=== PATIENT | female | born 1980 | race Caucasian/White ===

== ENCOUNTER 2016-12-04 14:34 | Emergency (ER) | payer OTHER ==
[2016-12-04] MEDS ORDERED: DICL100G18 TP (15:55)
[2016-12-04] MEDS ORDERED: HYDR-2758 PO (15:55)
--- NOTE | 2016-12-04 16:00 | PHYS DOC ---
Past History Past Medical History: No Pertinent History Past Surgical History: Appendectomy, Cholecystectomy Additional Smoking Information: 5 A DAY Alcohol Use: None Drug Use: None Adult General Chief Complaint Chief Complaint: ANKLE PROBLEM HPI HPI Patient is a 36 year old F who presents with ankle pain. She twisted her ankle approximately 5 days ago. She feels that her pain has been worsening during this time. She has been walking on her foot however she is unable to walk normally. She feels that her swelling is increased. Review of Systems Review of Systems Constitutional: Denies fever or chills [] Eyes: Denies change in visual acuity, redness, or eye pain [] HENT: Denies nasal congestion or sore throat [] Respiratory: Denies cough or shortness of breath [] Cardiovascular: No additional information not addressed in HPI [] GI: Denies abdominal pain, nausea, vomiting, bloody stools or diarrhea [] : Denies dysuria or hematuria [] Musculoskeletal: Negative except history of present illness Integument: Denies rash or skin lesions [] Neurologic: Denies headache, focal weakness or sensory changes [] Endocrine: Denies polyuria or polydipsia [] Family History Family History Noncontributory Current Medications Current Medications Medications reviewed Allergies Allergies No allergies Physical Exam Physical Exam Constitutional: Well developed, well nourished, no acute distress, non-toxic appearance. [] HENT: Normocephalic, atraumatic, Eyes: EOMI, conjunctiva normal, no discharge. [] Cardiovascular:Heart rate regular rhythm, no murmur [] Lungs & Thorax: Bilateral breath sounds clear to auscultation [] Skin: Warm, dry, no erythema, no rash. [] Extremities: Mild to moderate bruising and swelling over the left lateral ankle , tenderness to palpation anterior, inferior and posterior to the lateral malleolus. Pain with dorsiflexion and inversion Neurologic: Alert and oriented X 3, normal motor function, normal sensory function, no focal deficits noted. [] Psychologic: Affect normal, judgement normal, mood normal. [] Current Patient Data Vital Signs Vital Signs Date Time Temp Pulse Resp B/P (MAP) Pulse Ox O2 Delivery O2 Flow Rate FiO2 12/04/16 14:44 98.6 69 20 97 Room Air Course & Med Decision Making Course & Med Decision Making Pertinent Labs and Imaging studies reviewed. (See chart for details) Ktracs was reviewed. She has 1 prescription for pain medication in the past year which was prescribed on her initial visit approximately 5 days ago. The prescription is for 12 hydrocodone. There are no concerning trends on Ktracs Dragon Disclaimer Dragon Disclaimer This chart was dictated in whole or in part using Voice Recognition software in a busy, high-work load, and often noisy Emergency Department environment. It may contain unintended and wholly unrecognized errors or omissions. Departure Departure: Impression: Primary Impression: Ankle sprain Referrals: PCP,CHELE (PCP) Patient Instructions: Ankle Sprain Additional Instructions: Leilani was seen in the emergency department for an ankle injury. No emergency medical condition was found on history or physical exam. She was given a prescription for Voltaren and pain medication. She was advised to use lidocaine patches for pain. She was advised to follow-up with an orthopedic or sports medicine doctor as soon as possible for further management Scripts Hydrocodone Bit/Acetaminophen (HYDROCODONE-APAP 5-325 ) 1 Each Tablet 1 TAB PO PRN Q6HRS Y for PAIN for 2 Days, #6 TAB 0 Refills Prov: LINDA MATTSON MD 12/04/16 Diclofenac Sodium (VOLTAREN) 100 Gm Gel..gram. 1 GM TP QID, #100 GM 2 Refills Prov: LINDA MATTSON MD 12/04/16 Problem Qualifiers Primary Impression: Ankle sprain Encounter type: subsequent encounter Involved ligament of ankle: unspecified ligament Laterality: right Qualified Codes: S93.401D - Sprain of unspecified ligament of right ankle, subsequent encounter LINDA MATTSON MD Dec 04, 2016 16:00
[2016-12-04 16:04] VITALS: BP 155/87
== END 2016-12-04 16:14 | disposition home or self-care (01) ==
LOC: ER 14:34
DX: S93.402A Sprain of unspecified ligament of left ankle, initial encounter (principal); F17.200 Nicotine dependence, unspecified, uncomplicated; X58.XXXA Exposure to other specified factors, initial encounter; Y93.89 Activity, other specified; Y99.8 Other external cause status; Y92.89 Other specified places as the place of occurrence of the external cause
CPT/HCPCS: 99283

== ENCOUNTER 2017-05-06 19:54 | Emergency (ER) | payer OTHER ==
[~2017-05-06 19:54] MED LIST: DICL100G18 TP; HYDR-2758 PO
[2017-05-06 20:00] VITALS: BP 120/78
[2017-05-06] MEDS: IV NORMAL SALINE 1,000ML 1,000 ML IV SCH ×3 (21:30→23:30)
[2017-05-06] MEDS ORDERED: KETOROLAC 15 MG/ML VIAL. IV ONE (21:45)
[2017-05-06 22:11] LABS: CLARITY,URINE HAZY; COLOR,URINE STRAW
[2017-05-06 22:12] LABS: BACTERIA,URINE FEW /HPF (0-FEW); BILIRUBIN,URINE NEG (NEG); GLUCOSE,URINE NEG (NEG); NITRITE,URINE NEG (NEG); SQUAMOUS EPITHELIAL CELL,UR MANY /LPF; UROBILINOGEN,URINE 0.2 mg/dL (0.2 mg/dL)
[2017-05-06 22:26] LABS: BASO % 0 % (0-3); EOS # 0.2 x10^3/uL (0.0-0.7); EOS % 1 % (0-3); HEMATOCRIT 42.1 % (36.0-47.0); HEMOGLOBIN 14.3 g/dL (12.0-15.5); LYMPH # 2.4 x10^3/uL (1.0-4.8); LYMPH % 14 % (24-48); MEAN CORPUSCULAR HEMOGLOBIN 33 pg (25-35); MEAN CORPUSCULAR HGB CONC 34 g/dL (31-37); MEAN CORPUSCULAR VOLUME 97 fL (79-100); MONO # 1.2 x10^3/uL (0.0-1.1); MONO % 7 % (0-9); NEUT # 13.1 x10^3uL (1.8-7.7); NEUT % 78 % (31-73); PLATELET COUNT 405 x10^3/uL (140-400); RED BLOOD COUNT 4.37 x10^6/uL (3.50-5.40); RED CELL DISTRIBUTION WIDTH 15.7 % (11.5-14.5); WHITE BLOOD COUNT 16.8 x10^3/uL (4.0-11.0)
[2017-05-06 22:39] LABS: ALBUMIN 4.1 g/dL (3.4-5.0); ALBUMIN/GLOBULIN RATIO 1.1 (1.0-1.7); CALCIUM 9.5 mg/dL (8.5-10.1); CREATININE 1.2 mg/dL (0.6-1.0); GFR 51.1; POTASSIUM 4.5 mmol/L (3.5-5.1); TOTAL BILIRUBIN 0.2 mg/dL (0.2-1.0); TOTAL PROTEIN 7.7 g/dL (6.4-8.2)
[2017-05-06 22:55] LABS: % EOS 1 % (0-5); % LYMPHS 11 % (24-48); % MONOS 13 % (0-10); % SEGS 73 % (35-66)
[2017-05-06 22:56] LABS: PLT ESTIMATE INCREASED (ADEQUATE)
[2017-05-06 22:57] LABS: % ATYL 2 % (0-0)
[2017-05-07] MEDS ORDERED: HYDROmorphone PF 1 MG/ML DISP.SYRIN IV ONE
[2017-05-07] MEDS ORDERED: IOHEXOL 300 MG/ML 75 ML VIAL. IV ONE (00:15)
[2017-05-07] MEDS ORDERED: CONTRAST GIVEN MC PRN (00:15)
[2017-05-07 00:25] LABS: U PREG PATIENT NEGATIVE (NEG)
[2017-05-07] MEDS ORDERED: LORazepam 2 MG/ML VIAL IV ONE (00:45)
--- NOTE | 2017-05-07 01:36 | RAD ---
INDICATION: RIGHT FLANK AND RIGHT SIDED ABDOMINAL PAIN COMPARISON: None. TECHNIQUE: Axial CT images obtained through the abdomen and pelvis with contrast. One or more of the following individualized dose reduction techniques were utilized for this examination: 1. Automated exposure control; 2. Adjustment of the mA and/or kV according to patient size; 3. Use of iterative reconstruction technique. FINDINGS: Small hiatal hernia or mild distention distal esophagus. Abdominal aorta not aneurysmal. Postcholecystectomy changes with biliary ductal dilatation. No peripancreatic edema. Spleen unremarkable. No left-sided hydronephrosis. Urinary bladder is largely decompressed with small amount of urine within at time of exam. No right-sided hydronephrosis. Uterus is visualized. 50 x 36 mm cystic lesion right adnexa. Moderate stool in the colon. No dilated loops of bowel to suggest obstruction. Mild degenerative changes spine IMPRESSION: No evidence of bowel obstruction or hydronephrosis. Cystic lesion right adnexa. Could be ovarian in origin but if further information desired ultrasound could BE obtained. There is some prominence of the biliary tree status post cholecystectomy. This is commonly seen postoperatively but would correlate with symptoms in the region to ensure that there is not a pathologic process. Electronically signed by: Jared Bianchi MD (05/07/2017 1:33 AM) [facility]
[2017-05-07] MEDS ORDERED: DOCU-109 PO (02:07)
--- NOTE | 2017-05-07 02:07 | PHYS DOC ---
Past History Past Medical History: No Pertinent History Past Surgical History: Appendectomy, Cholecystectomy Alcohol Use: None Drug Use: None Adult General Chief Complaint Chief Complaint: ABDOMINAL PAIN HPI HPI 37-year-old female with a history of recurrent constipation now complaining of mid abdominal pain. Her pain is crampy and intermittent. She think she is constipated. No chest pain or shortness of breath. No right upper quadrant right lower quadrant pain. Patient denies nausea vomiting or diarrhea. No fevers chills sweats or shaking chills. Pain is not worse with movement Review of Systems Review of Systems Constitutional: Denies fever or chills [] Eyes: Denies change in visual acuity, redness, or eye pain [] HENT: Denies nasal congestion or sore throat [] Respiratory: Denies cough or shortness of breath [] Cardiovascular: No additional information not addressed in HPI [] GI: Denies abdominal pain, nausea, vomiting, bloody stools or diarrhea [] : Denies dysuria or hematuria [] Musculoskeletal: Denies back pain or joint pain [] Integument: Denies rash or skin lesions [] Neurologic: Denies headache, focal weakness or sensory changes [] Endocrine: Denies polyuria or polydipsia [] All other systems were reviewed and found to be within normal limits, except as documented in this note. Current Medications Current Medications Current Medications Medications (Trade) Dose Ordered Sig/Gianluca Start Time Stop Time Status Last Admin Dose Admin Hydromorphone HCl (Dilaudid) 0.5 mg 1X ONCE 05/07/17 00:00 05/07/17 00:04 DC 05/07/17 00:00 0.5 MG Info (Do NOT chart on this entry -- for MONITORING) 1 each PRN DAILY PRN 05/07/17 00:15 05/09/17 00:14 Iohexol (Omnipaque 300 Mg/ml) 75 ml 1X ONCE 05/07/17 00:15 05/07/17 00:16 DC Ketorolac Tromethamine (Toradol) 15 mg 1X ONCE 05/06/17 21:45 05/06/17 21:46 DC 05/06/17 21:45 15 MG Lorazepam (Ativan) 1 mg 1X ONCE 05/07/17 00:45 05/07/17 00:46 DC 05/07/17 00:42 1 MG Sodium Chloride 1,000 ml @ 1,000 mls/hr Q1H 05/06/17 21:30 05/06/17 22:30 1,000 MLS/HR Allergies Allergies Allergies Coded Allergies Type Severity Reaction Last Updated Verified acetaminophen Allergy Unknown 05/07/17 Yes oxycodone Allergy Unknown 05/07/17 Yes Physical Exam Physical Exam Appearing patient no acute distress mucous membranes moist supple neck clear lungs regular rate and rhythm. No focal abdominal tenderness specifically no right upper quadrant tenderness and nontender McBurney's point. Negative Kilgore sign. Normal bowel sounds no mass or megaly no CVA tenderness. Normal extremities and nonfocal neurologic exam Constitutional: Well developed, well nourished, no acute distress, non-toxic appearance. [] HENT: Normocephalic, atraumatic, bilateral external ears normal, oropharynx moist, no oral exudates, nose normal. [] Eyes: PERRLA, EOMI, conjunctiva normal, no discharge. [] Neck: Normal range of motion, no tenderness, supple, no stridor. [] Cardiovascular:Heart rate regular rhythm, no murmur [] Lungs & Thorax: Bilateral breath sounds clear to auscultation [] Abdomen: Bowel sounds normal, soft, no tenderness, no masses, no pulsatile masses. [] Skin: Warm, dry, no erythema, no rash. [] Back: No tenderness, no CVA tenderness. [] Extremities: No tenderness, no cyanosis, no clubbing, ROM intact, no edema. [] Neurologic: Alert and oriented X 3, normal motor function, normal sensory function, no focal deficits noted. [] Psychologic: Affect normal, judgement normal, mood normal. [] Current Patient Data Lab Results Laboratory Tests Test 05/06/17 20:55 05/06/17 22:07 Urine Collection Type Unknown Urine Color Straw Urine Clarity Hazy Urine pH 7.0 Urine Specific [place] 1.010 Urine Protein Neg (NEG-TRACE) Urine Glucose (UA) Neg mg/dL (NEG) Urine Ketones (Stick) Neg mg/dL (NEG) Urine Blood Mod (NEG) Urine Nitrite Neg (NEG) Urine Bilirubin Neg (NEG) Urine Urobilinogen Dipstick 0.2 mg/dL (0.2 mg/dL) Urine Leukocyte Esterase Neg (NEG) Urine RBC 3-5 /HPF (0-2) Urine WBC 5-10 /HPF (0-4) Urine Squamous Epithelial Cells Many /LPF Urine Bacteria Few /HPF (0-FEW) Urine Test Negative (NEG) White Blood Count 16.8 x10^3/uL (4.0-11.0) H Red Blood Count 4.37 x10^6/uL (3.50-5.40) Hemoglobin 14.3 g/dL (12.0-15.5) Hematocrit 42.1 % (36.0-47.0) Mean Corpuscular Volume 97 fL (79-100) Mean Corpuscular Hemoglobin 33 pg (25-35) Mean Corpuscular Hemoglobin Concent 34 g/dL (31-37) Red Cell Distribution Width 15.7 % (11.5-14.5) H Platelet Count 405 x10^3/uL (140-400) H Neutrophils (%) (Auto) 78 % (31-73) H Lymphocytes (%) (Auto) 14 % (24-48) L Monocytes (%) (Auto) 7 % (0-9) Eosinophils (%) (Auto) 1 % (0-3) Basophils (%) (Auto) 0 % (0-3) Neutrophils # (Auto) 13.1 x10^3uL (1.8-7.7) H Lymphocytes # (Auto) 2.4 x10^3/uL (1.0-4.8) Monocytes # (Auto) 1.2 x10^3/uL (0.0-1.1) H Eosinophils # (Auto) 0.2 x10^3/uL (0.0-0.7) Basophils # (Auto) 0.0 x10^3/uL (0.0-0.2) Segmented Neutrophils % 73 % (35-66) H Lymphocytes % 11 % (24-48) L Atypical Lymphocytes % (Manual) 2 % (0-0) H Monocytes % 13 % (0-10) H Eosinophils % 1 % (0-5) Platelet Estimate Increased (ADEQUATE) Sodium Level 134 mmol/L (136-145) L Potassium Level 4.5 mmol/L (3.5-5.1) Chloride Level 99 mmol/L (98-107) Carbon Dioxide Level 28 mmol/L (21-32) Anion Gap 7 (6-14) Blood Urea Nitrogen 12 mg/dL (7-20) Creatinine 1.2 mg/dL (0.6-1.0) H Estimated GFR (Cockcroft-Gault) 51.1 BUN/Creatinine Ratio 10 (6-20) Glucose Level 94 mg/dL (70-99) Calcium Level 9.5 mg/dL (8.5-10.1) Total Bilirubin 0.2 mg/dL (0.2-1.0) Aspartate Amino Transferase (AST) 11 U/L (15-37) L Alanine Aminotransferase (ALT) 26 U/L (14-59) Alkaline Phosphatase 104 U/L (46-116) Total Protein 7.7 g/dL (6.4-8.2) Albumin 4.1 g/dL (3.4-5.0) Albumin/Globulin Ratio 1.1 (1.0-1.7) Lipase 122 U/L (73-393) EKG EKG [] Radiology/Procedures Radiology/Procedures [] Course & Med Decision Making Course & Med Decision Making Pertinent Labs and Imaging studies reviewed. (See chart for details) Well-appearing patient no acute distress. White blood cell count elevated, creatinine 1.2. Patient hydrated extensively. Laboratory workup unremarkable otherwise. CT abdomen and pelvis shows have a hernia and a right adnexal cyst as well as constipation. Patient is a known history constipation which is recurrent and appears to be the etiology for her vague abdominal pain today. She is nontoxic appearing and no evidence of surgical emergency or indication for admission on the CT results. No further workup or treatment indicated at this time patient agrees with outpatient follow-up and strict return precautions given. She is aware to return immediately for new severe worsening symptoms [] Dragon Disclaimer Dragon Disclaimer This electronic medical record was generated, in whole or in part, using a voice recognition dictation system. Departure Departure: Impression: Primary Impression: Abdominal pain Additional Impressions: Constipation Hiatal hernia Mass of uterine adnexa Disposition: 01 HOME, SELF-CARE Condition: IMPROVED Referrals: PCP,UNKNOWN (PCP) Patient Instructions: Abdominal Pain (Nonspecific), Constipation, Adult Additional Instructions: It appears the or abdominal pain is likely secondary to constipation. Use MiraLAX twice a day. Take Colace as prescribed. Drink 15 mL of mineral oil twice a day as needed for constipation. Rest and drink plenty of fluids. Be aware that you have a hiatal hernia which can predispose you to having symptoms of gastroesophageal reflux especially when laying down. As an incidental finding , a pelvic mass was identified that is suggestive of a cyst. Follow-up with your [facility] doctor for further workup and treatment as needed. Take ibuprofen as needed for pain. Follow-up with your doctor today and return immediately for new severe worsening symptoms Scripts Docusate Sodium (COLACE) 100 Mg Capsule 1 CAP PO BID for 15 Days, #30 CAP Prov: IDA FREEMAN MD 05/07/17 Problem Qualifiers IDA FREEMAN MD May 07, 2017 02:07
== END 2017-05-07 02:22 | disposition home or self-care (01) ==
LOC: ER 19:54
DX: K59.00 Constipation, unspecified (principal); Z90.49 Acquired absence of other specified parts of digestive tract; Z88.6 Allergy status to analgesic agent; Z88.5 Allergy status to narcotic agent
CPT/HCPCS: 36415; 74177; 80053; 81001; 81025; 83690; 85007; 85025; 96374; 96375; 99285; J1170; J1885; J2060; J7030

== ENCOUNTER 2017-08-27 13:35 | Emergency (ER) | payer OTHER ==
[~2017-08-27 13:35] MED LIST changes: +DOCU-109 PO
--- NOTE | 2017-08-27 14:12 | PHYS DOC ---
Past History Past Medical History: No Pertinent History Past Surgical History: Appendectomy, Cholecystectomy Alcohol Use: None Drug Use: None Adult General Chief Complaint Chief Complaint: ANXIETY/PANIC ATTACK HPI HPI 37-year-old female presents with anxiety. The patient was recently admitted at so that she can get off of her multiple psychiatric medications. They have discontinued all but Lexapro. The patient is still in taking one Xanax and remained morning. She comes in today, because her car broke down just outside the hospital. She was on her way to her psychiatry appointment. She hasn't ex- boyfriend who has "taken away her daughter". In her current has threatened to leave her because he is concerned she was abusing her medications. All of this is becoming very overwhelming for her so she checked in the emergency room. She denies suicidal or homicidal ideation. She is simply emotionally overwhelmed. Review of Systems Review of Systems Constitutional: Denies fever or chills [] Eyes: Denies change in visual acuity, redness, or eye pain [] HENT: Denies nasal congestion or sore throat [] Respiratory: Denies cough or shortness of breath [] Cardiovascular: No additional information not addressed in HPI [] GI: Denies abdominal pain, nausea, vomiting, bloody stools or diarrhea [] : Denies dysuria or hematuria [] Musculoskeletal: Denies back pain or joint pain [] Integument: Denies rash or skin lesions [] Neurologic: Denies headache, focal weakness or sensory changes [] Endocrine: Denies polyuria or polydipsia [] All other systems were reviewed and found to be within normal limits, except as documented in this note. Allergies Allergies Allergies Coded Allergies Type Severity Reaction Last Updated Verified acetaminophen Allergy Unknown 05/07/17 Yes oxycodone Allergy Unknown 05/07/17 Yes Physical Exam Physical Exam Constitutional: Well developed, well nourished, no acute distress, non-toxic appearance. [] HENT: Normocephalic, atraumatic, bilateral external ears normal, oropharynx moist, no oral exudates, nose normal. [] Eyes: PERRLA, EOMI, conjunctiva normal, no discharge. [] Neck: Normal range of motion, no tenderness, supple, no stridor. [] Cardiovascular:Heart rate regular rhythm, no murmur [] Lungs & Thorax: Bilateral breath sounds clear to auscultation [] Abdomen: Bowel sounds normal, soft, no tenderness, no masses, no pulsatile masses. [] Skin: Warm, dry, no erythema, no rash. [] Back: No tenderness, no CVA tenderness. [] Extremities: No tenderness, no cyanosis, no clubbing, ROM intact, no edema. [] Neurologic: Alert and oriented X 3, normal motor function, normal sensory function, no focal deficits noted. [] Psychologic: Anxious, tearful[] EKG EKG [] Radiology/Procedures Radiology/Procedures [] Course & Med Decision Making Course & Med Decision Making Pertinent Labs and Imaging studies reviewed. (See chart for details) I had a conversation with the patient was able to help her calm down a bit. I explained to her that it is important that she try to make her psychiatric follow-up appointments. I also told her that it is not her best interest for me to miss around with her psychiatric medications when she has an expert that is already trying to help her. She stated that she understands. She did not ask for any medications. I believe she is just overwhelmed and was needing an outlet for her emotions. She denies any suicidal ideation. She feels as though she is stable to leave. She will contact her or friend help her with a ride. [] Dragon Disclaimer Dragon Disclaimer This electronic medical record was generated, in whole or in part, using a voice recognition dictation system. Departure Departure: Referrals: NORBERTO HENRY DO (PCP) YANCI BAHENA DO Aug 27, 2017 14:12
[2017-08-27 14:21] VITALS: BP 136/87
== END 2017-08-27 14:19 | disposition home or self-care (01) ==
LOC: ER 13:35
DX: F41.9 Anxiety disorder, unspecified (principal); Z88.6 Allergy status to analgesic agent; Z88.5 Allergy status to narcotic agent
CPT/HCPCS: 99284

== ENCOUNTER 2017-12-26 17:08 | Emergency (ER) | payer OTHER ==
[~2017-12-26] VITALS: Ht 162.6 cm; Wt 95.3 kg
--- NOTE | 2017-12-26 17:38 | PHYS DOC ---
Past History Past Medical History: Anxiety, Bipolar, Endometriosis, Other Past Surgical History: Appendectomy, Cholecystectomy Alcohol Use: Occasionally Drug Use: None Adult General Chief Complaint Chief Complaint: FLANK PAIN HPI HPI 37-year-old female presents with 2 day history of flank pain and increased urinary frequency. The patient is very concerned about having a kidney infection as she had one as a child that caused her to be in the hospital for 2 weeks. She states that she has had dysuria and urinary frequency last couple of days. She is also had right flank pain that comes and goes. When it comes on strongly it is a sharp pain that shoots outward across her back. Pain feels deep. The patient denies fever or chills. She denies nausea, vomiting, abdominal pain, chest pain, shortness of breath. Review of Systems Review of Systems Constitutional: Denies fever or chills [] Eyes: Denies change in visual acuity, redness, or eye pain [] HENT: Denies nasal congestion or sore throat [] Respiratory: Denies cough or shortness of breath [] Cardiovascular: No additional information not addressed in HPI [] GI: Denies abdominal pain, nausea, vomiting, bloody stools or diarrhea [] : Dysuria and urinary frequency[] Musculoskeletal: Right flank pain[] Integument: Denies rash or skin lesions [] Neurologic: Denies headache, focal weakness or sensory changes [] Endocrine: Denies polyuria or polydipsia [] All other systems were reviewed and found to be within normal limits, except as documented in this note. Allergies Allergies Allergies Coded Allergies Type Severity Reaction Last Updated Verified acetaminophen Allergy Unknown 05/07/17 Yes oxycodone Allergy Unknown 05/07/17 Yes Physical Exam Physical Exam Constitutional: Well developed, well nourished, no acute distress, non-toxic appearance. [] HENT: Normocephalic, atraumatic, bilateral external ears normal, oropharynx moist, no oral exudates, nose normal. [] Eyes: PERRLA, EOMI, conjunctiva normal, no discharge. [] Neck: Normal range of motion, no tenderness, supple, no stridor. [] Cardiovascular:Heart rate regular rhythm, no murmur [] Lungs & Thorax: Bilateral breath sounds clear to auscultation [] Abdomen: Bowel sounds normal, soft, no tenderness, no masses, no pulsatile masses. [] Skin: Warm, dry, no erythema, no rash. [] Back: Moderate right CVA tenderness. [] Extremities: No tenderness, no cyanosis, no clubbing, ROM intact, no edema. [] Neurologic: Alert and oriented X 3, normal motor function, normal sensory function, no focal deficits noted. [] Psychologic: Affect normal, judgement normal, mood normal. [] EKG EKG [] Radiology/Procedures Radiology/Procedures [] Impressions: CT scan of the abdomen and pelvis without contrast 12/26/2017 CLINICAL HISTORY: Severe right flank pain with urinary frequency. TECHNIQUE: Unenhanced, contiguous, 3 mm axial sections were obtained through abdomen and pelvis. One or more of the following individualized dose reduction techniques were utilized for this study: 1. Automated exposure control. 2. Adjustment of the mA and/or kV according to patient size. 3. Use of iterative reconstruction technique. FINDINGS: Comparison study is dated 05/07/2017. Images through the lung bases demonstrate minimal dependent subsegmental atelectasis bilaterally. The liver, spleen, pancreas, adrenal glands and kidneys are within normal limits. No renal or ureteral calculus is seen. There is no evidence of obstruction of either collecting system. The abdominal aorta tapers normally. Surgical clips are seen within the gallbladder fossa consistent with a cholecystectomy. No free fluid or free air is seen within the abdomen. There is no evidence of bowel obstruction. Air and stool is seen throughout the colon. The appendix is not visualized. No inflammatory changes are seen surrounding the cecum. Images through the pelvis demonstrate the urinary bladder to be contracted. A punctate calcification is seen within the left pelvis consistent with a phlebolith. No free fluid is seen. No adnexal mass is noted. Minimal S-shaped curvature of the thoracolumbar spine is noted. IMPRESSION: No acute abnormality is seen. Electronically signed by: Raul Hancock MD (12/26/2017 6:31 PM) [facility] DICTATED AND SIGNED BY: RAUL HANCOCK MD DATE: 12/26/17 182 CC: YANCI BAHENA DO; NORBERTO HENRY DO Course & Med Decision Making Course & Med Decision Making Pertinent Labs and Imaging studies reviewed. (See chart for details) Patient's labs are unremarkable. Her urinalysis is negative for blood or infection. Her CT scan does not show a kidney stone in the ureters or the kidneys. There is a small radiodensity thought to be a phlebolith. I reviewed the patient's controlled substance drug history and she has not had controls prescribed since early 2017 and she has had none filled since July. At that time he was benzos. She has had no pain medications filled since March. I will give her a short course of [place] 5/325 for pain and hydroxyzine for anxiety. [] Dragon Disclaimer Dragon Disclaimer This electronic medical record was generated, in whole or in part, using a voice recognition dictation system. Departure Departure: Referrals: NORBERTO HENRY DO (PCP) YANCI BAHENA DO Dec 26, 2017 17:38
[2017-12-26] MEDS ORDERED: ONDANSETRON PF 4 MG/2 ML VIAL. IV ONE (17:45)
[2017-12-26] MEDS ORDERED: KETOROLAC 30 MG/ML VIAL. IV ONE (17:45)
[2017-12-26] MEDS ORDERED: IV NORMAL SALINE 1,000ML 1,000 ML IV ONE (17:45)
[2017-12-26 18:08] LABS: BASO % 0 % (0-3); EOS # 0.4 x10^3/uL (0.0-0.7); EOS % 4 % (0-3); HEMATOCRIT 38.7 % (36.0-47.0); LYMPH # 2.2 x10^3/uL (1.0-4.8); LYMPH % 23 % (24-48); MEAN CORPUSCULAR HEMOGLOBIN 31 pg (25-35); MEAN CORPUSCULAR HGB CONC 34 g/dL (31-37); MEAN CORPUSCULAR VOLUME 92 fL (79-100); MONO # 0.9 x10^3/uL (0.0-1.1); MONO % 9 % (0-9); NEUT # 6.2 x10^3uL (1.8-7.7); NEUT % 64 % (31-73); PLATELET COUNT 357 x10^3/uL (140-400); RED BLOOD COUNT 4.21 x10^6/uL (3.50-5.40); RED CELL DISTRIBUTION WIDTH 13.9 % (11.5-14.5); WHITE BLOOD COUNT 9.6 x10^3/uL (4.0-11.0)
[2017-12-26 18:16] LABS: BACTERIA,URINE 0 /HPF (0-FEW); BILIRUBIN,URINE NEG (NEG); CLARITY,URINE CLEAR; COLOR,URINE YELLOW; GLUCOSE,URINE NEG (NEG); NITRITE,URINE NEG (NEG); RBC,URINE 0 /HPF (0-2); SQUAMOUS EPITHELIAL CELL,UR OCC /LPF; UROBILINOGEN,URINE 0.2 mg/dL (0.2 mg/dL); WBC,URINE 0 /HPF (0-4)
[2017-12-26 18:19] LABS: ALBUMIN 3.8 g/dL (3.4-5.0); ALBUMIN/GLOBULIN RATIO 1.1 (1.0-1.7); CALCIUM 9.8 mg/dL (8.5-10.1); GFR 63.1; POTASSIUM 3.9 mmol/L (3.5-5.1); TOTAL BILIRUBIN 0.4 mg/dL (0.2-1.0); TOTAL PROTEIN 7.2 g/dL (6.4-8.2)
[2017-12-26] MEDS ORDERED: LORazepam 2 MG/ML VIAL IV ONE (18:30)
[2017-12-26] MEDS ORDERED: HYDROmorphone PF 1 MG/ML DISP.SYRIN IV ONE (18:30)
--- NOTE | 2017-12-26 18:34 | RAD ---
CT scan of the abdomen and pelvis without contrast 12/26/2017 CLINICAL HISTORY: Severe right flank pain with urinary frequency. TECHNIQUE: Unenhanced, contiguous, 3 mm axial sections were obtained through abdomen and pelvis. One or more of the following individualized dose reduction techniques were utilized for this study: 1. Automated exposure control. 2. Adjustment of the mA and/or kV according to patient size. 3. Use of iterative reconstruction technique. FINDINGS: Comparison study is dated 05/07/2017. Images through the lung bases demonstrate minimal dependent subsegmental atelectasis bilaterally. The liver, spleen, pancreas, adrenal glands and kidneys are within normal limits. No renal or ureteral calculus is seen. There is no evidence of obstruction of either collecting system. The abdominal aorta tapers normally. Surgical clips are seen within the gallbladder fossa consistent with a cholecystectomy. No free fluid or free air is seen within the abdomen. There is no evidence of bowel obstruction. Air and stool is seen throughout the colon. The appendix is not visualized. No inflammatory changes are seen surrounding the cecum. Images through the pelvis demonstrate the urinary bladder to be contracted. A punctate calcification is seen within the left pelvis consistent with a phlebolith. No free fluid is seen. No adnexal mass is noted. Minimal S-shaped curvature of the thoracolumbar spine is noted. IMPRESSION: No acute abnormality is seen. Electronically signed by: Raul Valenzuela MD (12/26/2017 6:31 PM) [facility]
[2017-12-26 18:50] VITALS: BP 143/85
[2017-12-26] MEDS ORDERED: HYDR-971 PO (18:56)
[2017-12-26] MEDS ORDERED: HYDR25TA PO (18:56)
== END 2017-12-26 19:13 | disposition home or self-care (01) ==
LOC: ER 17:08
DX: R30.0 Dysuria (principal); R35.0 Frequency of micturition; R10.9 Unspecified abdominal pain; I87.8 Other specified disorders of veins; F41.9 Anxiety disorder, unspecified; F31.9 Bipolar disorder, unspecified; Z90.89 Acquired absence of other organs; Z90.49 Acquired absence of other specified parts of digestive tract; Z88.6 Allergy status to analgesic agent; Z88.5 Allergy status to narcotic agent
CPT/HCPCS: 36415; 74176; 80053; 81001; 81025; 85025; 96374; 96375; 99285; J1170; J1885; J2060; J2405; J7030

== ENCOUNTER 2018-02-10 16:57 | Emergency (ER) | payer OTHER ==
[~2018-02-10] VITALS: Ht 162.6 cm; Wt 95.3 kg
[~2018-02-10 16:57] MED LIST changes: +HYDR-3165 PO; +HYDR25TA PO
[2018-02-10 17:09] VITALS: BP 131/108
[2018-02-10] MEDS ORDERED: Percogesic PO (17:29)
--- NOTE | 2018-02-10 17:29 | PHYS DOC ---
Past History Past Medical History: Anxiety, Bipolar, Endometriosis, Hypertension, Other Past Surgical History: Appendectomy, Cholecystectomy Smoking: Non-smoker Alcohol Use: Occasionally Drug Use: None Adult General Chief Complaint Chief Complaint: Toothache HPI HPI Patient is a 37 year old female who presents with complaining of left lower jaw and tooth pain for 1 month intermittently getting worse for the last 1 week. Patient states she was seen at [facility] and treated with oxycodone but she is allergic to oxycodone and threw away all of the medication and her last dose of pain medication was yesterday . She states she went to [facility] today again but very were rude to her and she decided to leave. She states she is currently taking Augmentin and denies fever and chills, nausea and vomiting, . Patient states she has appointment with her dentist in one week. Review of Systems Review of Systems Constitutional: Denies fever or chills [] Eyes: Denies change in visual acuity, redness, or eye pain [] HENT: Denies nasal congestion or sore throat, reports dental pain Respiratory: Denies cough or shortness of breath [] Cardiovascular: No additional information not addressed in HPI [] GI: Denies abdominal pain, nausea, vomiting, bloody stools or diarrhea [] : Denies dysuria or hematuria [] Musculoskeletal: Denies back pain or joint pain [] Integument: Denies rash or skin lesions [] Neurologic: Denies headache, focal weakness or sensory changes [] Endocrine: Denies polyuria or polydipsia [] All other systems were reviewed and found to be within normal limits, except as documented in this note. Current Medications Current Medications Current Medications Medications (Trade) Dose Ordered Sig/Gianluca Start Time Stop Time Status Last Admin Dose Admin Ketorolac Tromethamine (Toradol Im) 60 mg 1X ONCE 02/10/18 17:15 02/10/18 17:16 UNV Allergies Allergies Allergies Coded Allergies Type Severity Reaction Last Updated Verified acetaminophen Allergy Unknown 05/07/17 Yes alprazolam Allergy Unknown 12/26/17 Yes oxycodone Allergy Unknown 05/07/17 Yes Physical Exam Physical Exam Constitutional: Well developed, well nourished, mild distress, non-toxic appearance. [] HENT: Normocephalic, atraumatic, bilateral external ears normal, #17 with small cavity and mild tenderness without abscess oropharynx moist, no oral exudates, nose normal. [] Eyes: PERRLA, EOMI, conjunctiva normal, no discharge. [] Neck: Normal range of motion, no tenderness, supple, no stridor. [] Cardiovascular:Heart rate regular rhythm, no murmur [] Lungs & Thorax: Bilateral breath sounds clear to auscultation [] Skin: Warm, dry, no erythema, no rash. [] Back: No tenderness, no CVA tenderness. [] Extremities: No tenderness, no cyanosis, no clubbing, ROM intact, no edema. [] Neurologic: Alert and oriented X 3, normal motor function, normal sensory function, no focal deficits noted. [] Psychologic: Affect anxious Current Patient Data Vital Signs Vital Signs Date Time Temp Pulse Resp B/P (MAP) Pulse Ox O2 Delivery O2 Flow Rate FiO2 02/10/18 17:09 98.2 100 20 100 Room Air EKG EKG [] Radiology/Procedures Radiology/Procedures [] Course & Med Decision Making Course & Med Decision Making Evaluation of patient in ER showed 37-year-old female patient presented to ER with complaining of dental pain intermittently for one month that getting worse for one week and did not get better with medication giving at [facility]. We had a call from [facility] that patient was seen at that hospital 3 times or dental pain and asking for more pain medication and refused to leave the emergency room and had to be escorted by [facility]. Patient was very concern about pain medication and several times asking about what kind of pain medication she is going to get for home and states she Tylenol 3 for tramadol does not work for her pain. Patient psychiatric to continue Augmentin and plan to give prescription for Percogesic and instruction to follow up with the dentist. Cicion Disclaimer Dragon Disclaimer This electronic medical record was generated, in whole or in part, using a voice recognition dictation system. Departure Departure: Impression: Primary Impression: Dentalgia Additional Impressions: Dental caries History of bipolar disorder Disposition: HOME, SELF-CARE (at 1726) Condition: STABLE Referrals: EREN LOCKWOOD (PCP) Patient Instructions: Dental Caries, Toothache-Brief Additional Instructions: Follow-up with your dentist in 2 or 3 days Follow-up with your primary care physician in 3-5 days Continue current antibiotic Scripts [Percogesic] No Conflict Check 1 TAB PO QID PRN for PAIN, #10 Prov: ROCKY MARCUS MD 02/10/18 Problem Qualifiers ROCKY MARCUS MD Feb 10, 2018 17:29
[2018-02-10] MEDS ORDERED: KETOROLAC 60 MG/2 ML VIAL. IM ONE (17:30)
== END 2018-02-10 17:35 | disposition home or self-care (01) ==
LOC: ER 16:57
DX: K02.9 Dental caries, unspecified (principal); F31.9 Bipolar disorder, unspecified; F41.9 Anxiety disorder, unspecified; I10 Essential (primary) hypertension; Z88.5 Allergy status to narcotic agent; Z88.6 Allergy status to analgesic agent; Z88.8 Allergy status to other drugs, medicaments and biological substances
CPT/HCPCS: 96372; 99283; J1885

== ENCOUNTER 2018-05-05 12:23 | Emergency (ER) | payer OTHER ==
[~2018-05-05] VITALS: Ht 162.6 cm; Wt 99.8 kg
[~2018-05-05 12:23] MED LIST changes: +HYDR-2155 PO; -HYDR-2758 PO; +Percogesic PO
[2018-05-05 12:49] VITALS: BP 136/104
[2018-05-05] MEDS ORDERED: KETOROLAC 60 MG/2 ML VIAL. IM ONE (13:15)
[2018-05-05] MEDS ORDERED: HYDR-3165 PO (13:28)
[2018-05-05] MEDS ORDERED: NAPR-683 PO (13:28)
[2018-05-05] MEDS ORDERED: PENI500T PO (13:28)
--- NOTE | 2018-05-05 13:29 | PHYS DOC ---
Past History Past Medical History: Anxiety, Bipolar, Endometriosis, Hypertension, Other Past Surgical History: Appendectomy, Cholecystectomy Smoking: Non-smoker Alcohol Use: Occasionally Drug Use: None Adult General Chief Complaint Chief Complaint: DENTAL PROBLEM HPI HPI Patient is a 38 year old female who presents with complaining of dental pain. She states she was in this emergency room 2 months ago because of dental pain and abscess but was not able to follow-up with the dentist because of financial problems and has had mild left lower jaw and tooth pain that getting worse for the last 1 month. Patient states the pain getting constant for the last 24 hours and rated her pain 10 over 10. Patient denies fever and chills, nausea and vomiting, . Review of Systems Review of Systems Constitutional: Denies fever or chills [] Eyes: Denies change in visual acuity, redness, or eye pain [] HENT: Denies nasal congestion or sore throat, reports dental pain Respiratory: Denies cough or shortness of breath [] Cardiovascular: No additional information not addressed in HPI [] GI: Denies abdominal pain, nausea, vomiting, bloody stools or diarrhea [] : Denies dysuria or hematuria [] Musculoskeletal: Denies back pain or joint pain [] Integument: Denies rash or skin lesions [] Neurologic: Denies headache, focal weakness or sensory changes [] Endocrine: Denies polyuria or polydipsia [] All other systems were reviewed and found to be within normal limits, except as documented in this note. Current Medications Current Medications Current Medications Medications (Trade) Dose Ordered Sig/[facility] Start Time Stop Time Status Last Admin Dose Admin Ketorolac Tromethamine (Toradol Im) 60 mg 1X ONCE 05/05/18 13:15 05/05/18 13:16 UNV Allergies Allergies Allergies Coded Allergies Type Severity Reaction Last Updated Verified acetaminophen Allergy Unknown 05/07/17 Yes alprazolam Allergy Unknown 12/26/17 Yes oxycodone Allergy Unknown 05/07/17 Yes Physical Exam Physical Exam Constitutional: Well developed, well nourished, mild acute distress, non-toxic appearance. [] HENT: Normocephalic, atraumatic, bilateral external ears normal, oropharynx moist, tooth #18 with cavity and tenderness, no oral exudates, nose normal. [] Eyes: PERRLA, EOMI, conjunctiva normal, no discharge. [] Neck: Normal range of motion, no tenderness, supple, no stridor. [] Cardiovascular:Heart rate regular rhythm, no murmur [] Lungs & Thorax: Bilateral breath sounds clear to auscultation [] Back: No tenderness, no CVA tenderness. [] Extremities: No tenderness, no cyanosis, no clubbing, ROM intact, no edema. [] Neurologic: Alert and oriented X 3 Psychologic: Affect anxious , judgement normal, mood normal. [] EKG EKG [] Radiology/Procedures Radiology/Procedures [] Course & Med Decision Making Course & Med Decision Making Evaluation of patient in ER showed 28-year-old male patient with complaining of dental pain for several months that getting worse for the last 24 hours. Patient was anxious and rated her pain 10 over 10. Patient function is to follow -up with her dentist. Plan to give prescription for antibiotic and pain medication. Dragon Disclaimer Dragon Disclaimer This electronic medical record was generated, in whole or in part, using a voice recognition dictation system. Departure Departure: Impression: Primary Impression: Dental caries Additional Impression: Dentalgia Disposition: 01 HOME, SELF-CARE Condition: STABLE Referrals: EREN LOCKWOOD (PCP) Patient Instructions: Dental Abscess, Toothache-Brief Additional Instructions: Drink plenty of liquids Follow-up with your dentist in 2 days Return to ER if not getting better Scripts Penicillin V Potassium (PENICILLIN V POTASSIUM) 500 Mg Tablet 1 TAB PO QID for Infection, #40 TAB Prov: ROCKY MARCUS MD 05/05/18 Hydrocodone Bit/Acetaminophen (NORCO 5-325 TABLET) 1 Each Tablet 1 TAB PO PRN Q6HRS PRN for PAIN, #8 TAB 0 Refills Prov: ROCKY MARCUS MD 05/05/18 Naproxen (NAPROSYN) 500 Mg Tablet 500 MG PO BID for pain, #20 TAB Prov: ROCKY MARCUS MD 05/05/18 Problem Qualifiers ROCKY MARCUS MD May 05, 2018 13:29
== END 2018-05-05 13:50 | disposition home or self-care (01) ==
LOC: ER 12:23
DX: K02.9 Dental caries, unspecified (principal); F41.9 Anxiety disorder, unspecified; F31.9 Bipolar disorder, unspecified; I10 Essential (primary) hypertension; Z88.5 Allergy status to narcotic agent; Z88.6 Allergy status to analgesic agent
CPT/HCPCS: 96372; 99283; J1885

== ENCOUNTER 2018-10-21 15:25 | Emergency (ER) | payer OTHER ==
[~2018-10-21] VITALS: Ht 162.6 cm; Wt 88.5 kg
[~2018-10-21 15:25] MED LIST changes: +NAPR-683 PO; +PENI500T PO
[2018-10-21] MEDS ORDERED: IV NORMAL SALINE 1,000ML 1,000 ML IV ONE (15:45)
[2018-10-21] MEDS ORDERED: MORPHINE SULFATE 2 MG/ML DISP.SYRIN. IV ONE (15:45)
[2018-10-21] MEDS ORDERED: ONDANSETRON PF 4 MG/2 ML VIAL. IV ONE ×2 (15:45→17:45)
[2018-10-21 15:52] LABS: BASO % 1 % (0-3); EOS # 0.2 x10^3/uL (0.0-0.7); EOS % 5 % (0-3); HEMATOCRIT 36.6 % (36.0-47.0); HEMOGLOBIN 11.8 g/dL (12.0-15.5); LYMPH # 1.7 x10^3/uL (1.0-4.8); LYMPH % 33 % (24-48); MEAN CORPUSCULAR HEMOGLOBIN 31 pg (25-35); MEAN CORPUSCULAR HGB CONC 32 g/dL (31-37); MEAN CORPUSCULAR VOLUME 96 fL (79-100); MONO # 0.6 x10^3/uL (0.0-1.1); MONO % 12 % (0-9); NEUT # 2.6 x10^3uL (1.8-7.7); NEUT % 50 % (31-73); PLATELET COUNT 385 x10^3/uL (140-400); RED CELL DISTRIBUTION WIDTH 14.6 % (11.5-14.5); WHITE BLOOD COUNT 5.2 x10^3/uL (4.0-11.0)
--- NOTE | 2018-10-21 16:06 | PHYS DOC ---
Past History Past Medical History: Bipolar, Depression, Other Past Surgical History: Other Smoking: Non-smoker Alcohol Use: None Drug Use: None Adult General Chief Complaint Chief Complaint: VAGINAL BLEEDING HPI HPI 38-year-old female presents with vaginal bleeding. The patient is unsure if she is . She has not taken a test. She has been trying to give . Her last menstrual period was just over a month ago. It was internet e[employer] than normal. The patient started bleeding 5 or 6 days ago. This is about when her menses would normally start. This time however she is having significantly more bleeding than normal and there have been several clots up to the size of half dollar. The patient is concerned that she could be having an early miscarriage. She has gone through his many as 3 altered tampons an hour. She has been having dizziness and lightheadedness especially with standing up. She has a history of endometriosis. She denies fever or chills. Review of Systems Review of Systems Constitutional: Denies fever or chills [] Eyes: Denies change in visual acuity, redness, or eye pain [] HENT: Denies nasal congestion or sore throat [] Respiratory: Denies cough or shortness of breath [] Cardiovascular: No additional information not addressed in HPI [] GI: Denies abdominal pain, nausea, vomiting, bloody stools or diarrhea [] : Vaginal bleeding[] Musculoskeletal: Denies back pain or joint pain [] Integument: Denies rash or skin lesions [] Neurologic: Denies headache, focal weakness or sensory changes [] Endocrine: Denies polyuria or polydipsia [] All other systems were reviewed and found to be within normal limits, except as documented in this note. Current Medications Current Medications Current Medications Medications (Trade) Dose Ordered Sig/[facility] Start Time Stop Time Status Last Admin Dose Admin Morphine Sulfate (Morphine 2mg Syringe) 2 mg 1X ONCE 10/21/18 15:45 10/21/18 15:47 DC 10/21/18 15:49 2 MG Ondansetron HCl (Zofran) 4 mg 1X ONCE 10/21/18 15:45 10/21/18 15:47 DC 10/21/18 15:49 4 MG Sodium Chloride 1,000 ml @ 1,000 mls/hr 1X ONCE 10/21/18 15:45 10/21/18 16:44 10/21/18 15:49 1,000 MLS/HR Allergies Allergies Allergies Coded Allergies Type Severity Reaction Last Updated Verified acetaminophen Allergy Unknown 05/07/17 Yes alprazolam Allergy Unknown 12/26/17 Yes oxycodone Allergy Unknown 05/07/17 Yes Physical Exam Physical Exam Constitutional: Well developed, well nourished, no acute distress, non-toxic appearance. [] HENT: Normocephalic, atraumatic, bilateral external ears normal, oropharynx moist, no oral exudates, nose normal. [] Eyes: PERRLA, EOMI, conjunctiva normal, no discharge. [] Neck: Normal range of motion, no tenderness, supple, no stridor. [] Cardiovascular:Heart rate regular rhythm, no murmur [] Lungs & Thorax: Bilateral breath sounds clear to auscultation [] Abdomen: Bowel sounds normal, soft, mild suprapubic tenderness, no masses, no pulsatile masses. [] Skin: Warm, dry, no erythema, no rash. [] Back: No tenderness, no CVA tenderness. [] Extremities: No tenderness, no cyanosis, no clubbing, ROM intact, no edema. [] Neurologic: Alert and oriented X 3, normal motor function, normal sensory function, no focal deficits noted. [] Psychologic: Affect normal, judgement normal, mood anxious. [] Current Patient Data Vital Signs Vital Signs Date Time Temp Pulse Resp B/P (MAP) Pulse Ox O2 Delivery O2 Flow Rate FiO2 10/21/18 15:56 98.3 98 20 100 Room Air EKG EKG [] Radiology/Procedures Radiology/Procedures [] Course & Med Decision Making Course & Med Decision Making Pertinent Labs and Imaging studies reviewed. (See chart for details) Patient's labs are unremarkable. Her ultrasound is negative for significant findings. I believe she is just having an unusually heavy menses this month. Her hemoglobin is slightly lower than her previous visit, but not near transfusion level. She is feeling better after the fluids and pain medicine. She is stable for discharge at this time. [] Dragon Disclaimer Dragon Disclaimer This electronic medical record was generated, in whole or in part, using a voice recognition dictation system. Departure Departure: Impression: Primary Impression: Dysmenorrhea Disposition: 01 HOME, SELF-CARE Condition: STABLE Referrals: EREN LOCKOWOD (PCP) Patient Instructions: Dysmenorrhea, [id number] YANCI BAHENA DO Oct 21, 2018 16:06
[2018-10-21 16:07] LABS: ALBUMIN 3.7 g/dL (3.4-5.0); ALBUMIN/GLOBULIN RATIO 1.2 (1.0-1.7); CALCIUM 9.4 mg/dL (8.5-10.1); CREATININE 0.8 mg/dL (0.6-1.0); GFR 81.2; POTASSIUM 3.7 mmol/L (3.5-5.1); TOTAL BILIRUBIN 0.3 mg/dL (0.2-1.0); TOTAL PROTEIN 6.7 g/dL (6.4-8.2)
[2018-10-21 17:10] LABS: BACTERIA,URINE 0 /HPF (0-FEW); BILIRUBIN,URINE NEG (NEG); CLARITY,URINE HAZY; COLOR,URINE YELLOW; GLUCOSE,URINE NEG (NEG); NITRITE,URINE NEG (NEG); RBC,URINE 0 /HPF (0-2); SQUAMOUS EPITHELIAL CELL,UR OCC /LPF; UROBILINOGEN,URINE 0.2 mg/dL (0.2 mg/dL); WBC,URINE 0 /HPF (0-4)
--- NOTE | 2018-10-21 17:48 | RAD ---
Exam: Ultrasound pelvis Indication: Passing blood clots Technique: Real-time grayscale and color Doppler images of the pelvis were obtained by the department [place] operator. Transabdominal and transvaginal images were obtained Comparisons: CT 10/26/2017 FINDINGS: Uterus measures 8.3 x 4.7 x 4.3 cm. Uterus demonstrates homogenous echotexture. Endometrium measures 0.7 cm in thickness. Right ovary measures 2.9 x 3.2 x 2.7 cm. Color Doppler flow is noted within the right ovary. Dominant follicle is noted within the right ovary measuring 2.4 x 1.9 x 2.5 cm. Left ovary measures 3.3 x 2.5 x 2.8 cm. Color Doppler flow is noted within the left ovary. Small amount of free fluid noted within the cul-de-sac, likely physiologic. IMPRESSION: 1. Normal sonographic appearance of the uterus. No abnormal endometrial thickening. 2. Likely dominant follicle within the right ovary. Otherwise unremarkable appearance of the ovaries. 3. Small amount of free fluid in the pelvis, likely physiologic. Electronically signed by: Luis Fernando Molina MD (10/21/2018 5:45 PM) [facility]
[2018-10-21] MEDS ORDERED: HYDR-3166 PO (18:05)
[2018-10-21 18:17] VITALS: BP 122/78
== END 2018-10-21 18:10 | disposition home or self-care (01) ==
LOC: ER 15:25
DX: N94.6 Dysmenorrhea, unspecified (principal); R42 Dizziness and giddiness; Z88.6 Allergy status to analgesic agent; Z88.5 Allergy status to narcotic agent; Z88.8 Allergy status to other drugs, medicaments and biological substances
CPT/HCPCS: 36415; 76856; 80053; 81001; 84702; 85025; 96361; 96374; 96375; 96376; 99285; J2270; J2405; J3010; J7030

== ENCOUNTER 2019-02-21 18:50 | Emergency (ER) | payer OTHER ==
[~2019-02-21] VITALS: Ht 162.6 cm; Wt 91.2 kg
[~2019-02-21 18:50] MED LIST changes: +HYDR-3166 PO
--- NOTE | 2019-02-21 18:56 | PHYS DOC ---
Past History Past Medical History: Anxiety, Bipolar, Depression, Endometriosis, IBS, Ovarian Cyst, Other Past Surgical History: Appendectomy, Cholecystectomy, Other Past Surgical History Laser Surgery for Endometriosis and Ovarian Cyst. Smoking: Non-smoker Alcohol Use: None Drug Use: None Adult General Chief Complaint Chief Complaint: VAGINAL BLEEDING ".. I got this bleeding... ".. " I afraid I am having a mis carry.. I been trying to get again.. I did have two home preg. tests that appeared to be +... " [facility] HPI Patient is a 38 year old female who presents with above hx and complaints dysfunctional uterine bleeding and fever that she may be having a miscarriage. Patient does have a history of gravid 1 term 1. Vaginal delivery. Patient has long history of endometriosis with laser surgeries and laparotomies. Patient also has history of recurrent ovarian cysts some that had to be removed surgically. Patient normally follows at [facility]. Patient denies any history of STDs. She has had 20 lifetime sexual partners. Is currently taking a multivitamin . Does have a history of bipolar and anxiety issues. Patient does not smoke. No intake of bad food recently. No history of trauma. No history of traumatic sexual intercourse. Patient states this current episode of abdomen pain and cramping and bleeding start with pink discharge as if she had a large menstrual period. Pt. then had spotting pink discharge again. Patient is not currently on any ovarian stimulation meds to induce ovulation to enhance . No history of trauma. No recent travel. No specific ill contacts. No history immunosuppression. Has had previous laparoscopic surgeries, cholecystectomy, appendectomy, laser laparoscopic procedures for endometriosis and ovarian cyst. Review of Systems Review of Systems Constitutional: Denies fever or chills [] Eyes: Denies change in visual acuity, redness, or eye pain [] HENT: Denies nasal congestion or sore throat [] Respiratory: Denies cough or shortness of breath [] Cardiovascular: No additional information not addressed in HPI [] GI: Complaints of severe crampy abdominal pain, nausea. Vaginal bleeding and clots.. Patient denies, vomiting, bloody stools or diarrhea [] : Denies dysuria or hematuria [] Musculoskeletal: Denies back pain or joint pain [] Integument: Denies rash or skin lesions [] Neurologic: Denies headache, focal weakness or sensory changes [] Endocrine: Denies polyuria or polydipsia [] All other systems were reviewed and found to be within normal limits, except as documented in this note. Family History Family History Noncontributory Current Medications Current Medications See nursing for home meds Allergies Allergies Allergies Coded Allergies Type Severity Reaction Last Updated Verified acetaminophen Allergy Unknown 05/07/17 Yes alprazolam Allergy Unknown 12/26/17 Yes oxycodone Allergy Unknown 05/07/17 Yes Physical Exam Physical Exam Constitutional: Moderate acute distress, non-toxic appearance. [] HENT: Normocephalic, atraumatic, bilateral external ears normal, oropharynx moist, no oral exudates, nose normal. [] Eyes: PERRLA, EOMI, conjunctiva normal, no discharge. [] Neck: Normal range of motion, no tenderness, supple, no stridor. [] Cardiovascular:Heart rate regular rhythm, no murmur [] Lungs & Thorax: Bilateral breath sounds clear to auscultation [] Abdomen: Bowel sounds normal, soft, lower pelvic and bilateral adnexal tenderness, no masses, no pulsatile masses. Some spotting from os. Mild cervical motion tenderness. Some rebound to lower pelvic bilaterally. No CVA tenderness. Old surgery scars. Skin: Warm, dry, no erythema, no rash. [] Back: No tenderness, no CVA tenderness. [] Extremities: No tenderness, no cyanosis, no clubbing, ROM intact, no edema. [] No true psoas sign. Neurologic: Alert and oriented X 3, normal motor function, normal sensory function, no focal deficits noted. [] Psychologic: Affect very anxious, judgement normal, mood normal. [] EKG EKG [] Radiology/Procedures Radiology/Procedures [][address] [place] [address] IMAGING REPORT Signed PATIENT: RIVER TOLEDO ACCOUNT: [id number] : 1980 LOCATION: ER AGE: 38 SEX: F EXAM STATUS: REG ER ORD. PHYSICIAN: BRENTON PARKER MD REASON: Omni 300,75ml IV.Omni 240,30ml PO.Lower abd pain.Hx endometriosis PROCEDURE: CT ABD PELV W/ORAL&IV CONTRAST Exam: CT abdomen and pelvis with contrast INDICATION: Lower abdominal pain TECHNIQUE: Sequential axial images through the abdomen and pelvis obtained following the administration of 75 mL of Omni 300 IV contrast. Sagittal and coronal reformatted images were reconstructed from the axial data and reviewed. Comparisons: 12/26/2017 FINDINGS: Heart size is normal. No pericardial effusion. Visualized lung bases are clear. No pleural effusion. Liver, spleen, pancreas and adrenals are unremarkable. Gallbladder surgically absent. Kidneys demonstrate symmetric enhancement. No perinephric inflammation or hydronephrosis. No renal or ureteral calculi are identified. Bladder is decompressed not well evaluated. Uterus is not enlarged. No abnormal adnexal mass. Abdominal aorta has normal course and caliber. Abdominal vasculature is patent. No enlarged intra-abdominal lymph nodes are identified. No suspicious osseous lesions or acute fractures. IMPRESSION: No acute process identified within the abdomen or pelvis. Exposure: One or more of the following in the visualized dose reduction techniques were utilized for this examination: 1. Automated exposure control 2. Adjustment of the MA and/or KV according to patient size 3. Use of iterative of reconstructive technique Electronically signed by: Luis Fernando Tipton MD (02/21/2019 10:47 PM) [facility] [place] [id number] DICTATED AND SIGNED BY: LUIS FERNANDO TIPTON MD DATE: 02/21/19 2246 CC: EREN LOCKWOOD; BRENTON PARKER MD ~ Course & Med Decision Making Course & Med Decision Making Pertinent Labs and Imaging studies reviewed. (See chart for details) Patient follow-up primary care. Patient take meds as previous discharge did. Patient recommended be on a clear fluid diet for the next 2 days. Allow up pending cultures. Return if any concerns. Tylenol or ibuprofen for pain. For marked pain may take Vicoprofen up to 4 times a day. Take milk of magnesia if taking Vicoprofen. Must have re exam if no improvement. Follow-up pending cultures. Impression: 1. Abdomen Pain 2. Not 3. Dysfunctional uterine bleeding 4. History of endometriosis 5. History of ovarian Cysts 6. Blood Type O + [] Dragon Disclaimer Dragon Disclaimer This electronic medical record was generated, in whole or in part, using a voice recognition dictation system. Departure Departure: Disposition: 01 HOME/RESIDENCE PRIOR TO ADM Condition: STABLE Referrals: EREN LOCKWOOD (PCP) Scripts Hydrocodone/Ibuprofen (HYDROCODONE-IBUPROFEN 7.5-200 ) 1 Each Tablet 1 TAB PO PRN Q6HRS PRN for PAIN, #30 TAB 0 Refills Prov: BRENTON PARKER MD 02/21/19 Tommy Disclaimer This chart was dictated in whole or in part using Voice Recognition software in a busy, high-work load, and often noisy Emergency Department environment. It may contain unintended and wholly unrecognized errors or omissions. Dragon Disclaimer This chart was dictated in whole or in part using Voice Recognition software in a busy, high-work load, and often noisy Emergency Department environment. It may contain unintended and wholly unrecognized errors or omissions. BRENTON PARKER MD Feb 21, 2019 18:56
[2019-02-21] MEDS ORDERED: IV RINGERS SOLUTION,LACTATED 1,000 ML IV SCH (19:00)
[2019-02-21 19:25] LABS: BARBITURATES NEG (NEG); BENZODIAZEPINES NEG (NEG); CANNABINOIDS NEG (NEG); COCAINE NEG (NEG); METHADONE NEG (NEG); OPIATES NEG (NEG); PHENCYCLIDINE NEG (NEG)
[2019-02-21 19:26] LABS: AMPHETAMINE/METHAMPHETAMINE NEG (NEG)
[2019-02-21] MEDS ORDERED: oxyCODONE/APAP 5/325 1 TAB TABLET PO ONE (19:30)
[2019-02-21 19:32] LABS: BILIRUBIN,URINE NEG (NEG); CLARITY,URINE CLEAR; COLOR,URINE YELLOW; GLUCOSE,URINE NEG (NEG)
[2019-02-21 19:33] LABS: BACTERIA,URINE 0 /HPF (0-FEW); NITRITE,URINE NEG (NEG); RBC,URINE RARE /HPF (0-2); SQUAMOUS EPITHELIAL CELL,UR OCC /LPF; UROBILINOGEN,URINE 0.2 mg/dL (0.2 mg/dL); WBC,URINE RARE /HPF (0-4)
[2019-02-21 19:57] LABS: BASO % 1 % (0-3); EOS # 0.4 x10^3/uL (0.0-0.7); EOS % 5 % (0-3); HEMATOCRIT 39.2 % (36.0-47.0); HEMOGLOBIN 12.9 g/dL (12.0-15.5); LYMPH # 2.5 x10^3/uL (1.0-4.8); LYMPH % 29 % (24-48); MEAN CORPUSCULAR HEMOGLOBIN 30 pg (25-35); MEAN CORPUSCULAR HGB CONC 33 g/dL (31-37); MEAN CORPUSCULAR VOLUME 92 fL (79-100); MONO # 0.8 x10^3/uL (0.0-1.1); MONO % 9 % (0-9); NEUT # 4.9 x10^3uL (1.8-7.7); NEUT % 57 % (31-73); PLATELET COUNT 442 x10^3/uL (140-400); RED BLOOD COUNT 4.28 x10^6/uL (3.50-5.40); RED CELL DISTRIBUTION WIDTH 14.3 % (11.5-14.5); WHITE BLOOD COUNT 8.6 x10^3/uL (4.0-11.0)
[2019-02-21 20:02] LABS: ALBUMIN 4.2 g/dL (3.4-5.0); CALCIUM 9.4 mg/dL (8.5-10.1); CREATININE 0.8 mg/dL (0.6-1.0); DIRECT BILIRUBIN 0.1 mg/dL (0.0-0.2); GFR 81.2; TOTAL BILIRUBIN 0.3 mg/dL (0.2-1.0); TOTAL PROTEIN 7.8 g/dL (6.4-8.2)
[2019-02-21] MEDS ORDERED: KETOROLAC 30 MG/ML VIAL. IVP ONE (20:45)
[2019-02-21] MEDS ORDERED: IOHEXOL 300 MG/ML 75 ML VIAL. IV ONE (21:00)
[2019-02-21] MEDS ORDERED: IOHEXOL 240 MG/ML 50ML VIAL. PO ONE (21:00)
[2019-02-21] MEDS ORDERED: CONTRAST GIVEN MC PRN (21:00)
[2019-02-21] MEDS ORDERED: MORPHINE SULFATE 10 MG/ML SYRINGE. SQ ONE (21:30)
--- NOTE | 2019-02-21 22:50 | RAD ---
Exam: CT abdomen and pelvis with contrast INDICATION: Lower abdominal pain TECHNIQUE: Sequential axial images through the abdomen and pelvis obtained following the administration of 75 mL of Omni 300 IV contrast. Sagittal and coronal reformatted images were reconstructed from the axial data and reviewed. Comparisons: 12/26/2017 FINDINGS: Heart size is normal. No pericardial effusion. Visualized lung bases are clear. No pleural effusion. Liver, spleen, pancreas and adrenals are unremarkable. Gallbladder surgically absent. Kidneys demonstrate symmetric enhancement. No perinephric inflammation or hydronephrosis. No renal or ureteral calculi are identified. Bladder is decompressed not well evaluated. Uterus is not enlarged. No abnormal adnexal mass. Abdominal aorta has normal course and caliber. Abdominal vasculature is patent. No enlarged intra-abdominal lymph nodes are identified. No suspicious osseous lesions or acute fractures. IMPRESSION: No acute process identified within the abdomen or pelvis. Exposure: One or more of the following in the visualized dose reduction techniques were utilized for this examination: 1. Automated exposure control 2. Adjustment of the MA and/or KV according to patient size 3. Use of iterative of reconstructive technique Electronically signed by: Luis Fernando Molina MD (02/21/2019 10:47 PM) [id number]
[2019-02-21 23:00] VITALS: BP 115/87
[2019-02-21] MEDS ORDERED: HYDR-1179 PO (23:06)
== END 2019-02-21 23:08 | disposition home or self-care (01) ==
LOC: ER 18:50
DX: N93.8 Other specified abnormal uterine and vaginal bleeding (principal); K58.9 Irritable bowel syndrome, unspecified; Z90.89 Acquired absence of other organs; Z90.49 Acquired absence of other specified parts of digestive tract; Z88.6 Allergy status to analgesic agent; Z88.5 Allergy status to narcotic agent; Z88.8 Allergy status to other drugs, medicaments and biological substances
CPT/HCPCS: 36415; 74177; 80048; 80076; 80307; 81001; 81025; 83735; 84443; 84702; 85025; 85610; 85730; 86592; 86703; 86705; 86709; 86803; 86900; 86901; 87340; 96372; 96374; 96375; 99285; J1885; J2060; J2270; J7120; Q0111; Q9966; Q9967

== ENCOUNTER 2019-02-26 18:50 | Emergency (ER) | payer OTHER ==
[~2019-02-26] VITALS: Ht 162.6 cm; Wt 91.2 kg
[~2019-02-26 18:50] MED LIST changes: +HYDR-1179 PO
--- NOTE | 2019-02-26 19:53 | PHYS DOC ---
Past History Past Medical History: Anxiety, Bipolar, Depression, Endometriosis, IBS, Ovarian Cyst, Other Additional Past Medical Histor: DRUG SEEKING BEHAVIOR Past Surgical History: Appendectomy, Cholecystectomy, Other Additional Past Surgical Histo: EXPLORATORY SX FOR ENDOMETROSIS Smoking: Non-smoker Alcohol Use: None Drug Use: None Adult General Chief Complaint Chief Complaint: VAGINAL BLEEDING HPI HPI Patient is a 38 year old female who presents with complaint of pelvic pain and vaginal bleeding. Patient has been evaluated in the emergency department with complaint of similar symptoms. Has been diagnosed recently with dysfunctional uterine bleeding from her previous visit on February 21, 2019. Patient underwent lab work and CT imaging which was found to be stable at that time. The patient was prescribed Vicoprofen 30 tablets from her previous visit. She states that she has been taking these at home which helped controlled her pain but states that she just ran out within the last couple days. Notes that she has an appointment with an PURIFICATION OPERATOR HELPER in 2 days but came to the emergency department as she states her pain has come back after stopping the medication. Denies any fever. Notes that the pain is in the same area as previously evaluated. Denies any new symptoms associated with her pain. Has had history of endometriosis and previous history of chronic pain medication treatment. Notes that her vaginal bleeding has decreased but she is still noting slight bleeding at this time. No shortness of breath, severe dizziness, or lightheadedness. She is requesting a small refill of her pain medication until her follow-up appointment in 2 days wi th PURIFICATION OPERATOR HELPER. Review of Systems Review of Systems Constitutional: Denies fever or chills [] Eyes: Denies change in visual acuity, redness, or eye pain [] HENT: Denies nasal congestion or sore throat [] Respiratory: Denies cough or shortness of breath [] Cardiovascular: Denies chest pain or edema[] GI: Denies abdominal pain, nausea, vomiting, bloody stools or diarrhea [] : Pelvic pain, vaginal bleeding[] Musculoskeletal: Denies back pain or joint pain [] Integument: Denies rash or skin lesions [] Neurologic: Denies headache, focal weakness or sensory changes [] All other systems were reviewed and found to be within normal limits, except as documented in this note. Allergies Allergies Allergies Coded Allergies Type Severity Reaction Last Updated Verified acetaminophen Allergy Unknown 05/07/17 Yes alprazolam Allergy Unknown 12/26/17 Yes oxycodone Allergy Unknown 05/07/17 Yes Physical Exam Physical Exam Constitutional: Alert, afebrile, no acute distress. [] HENT: Normocephalic, atraumatic, bilateral external ears normal, oropharynx moist, no oral exudates, nose normal. [] Eyes: PERRLA, EOMI, conjunctiva normal, no discharge. [] Neck: Normal range of motion, no tenderness, supple, no stridor. [] Cardiovascular:Heart rate regular rhythm, no murmur [] Lungs & Thorax: Bilateral breath sounds clear to auscultation [] Abdomen: Bowel sounds normal, soft, suprapubic tenderness to palpation, no guarding or rebound tenderness, no masses, no pulsatile masses. [] Skin: Warm, dry, no erythema, no rash. [] Back: No tenderness, no CVA tenderness. [] Extremities: No tenderness, no cyanosis, no clubbing, ROM intact, no edema. [] Neurologic: Alert and oriented X 3, normal motor function, normal sensory fun ction, no focal deficits noted. [] Current Patient Data Vital Signs Vital Signs Date Time Temp Pulse Resp B/P (MAP) Pulse Ox O2 Delivery O2 Flow Rate FiO2 02/26/19 19:10 98.4 77 16 98 Room Air Lab Results Laboratory Tests Test 02/26/19 19:10 Urine Collection Type Unknown Urine Color Yellow Urine Clarity Clear Urine pH 7.5 Urine Specific [place] 1.010 Urine Protein Neg Urine Glucose (UA) Neg mg/dL Urine Ketones (Stick) Neg mg/dL Urine Blood Neg Urine Nitrite Neg Urine Bilirubin Neg Urine Urobilinogen Dipstick 0.2 mg/dL Urine Leukocyte Esterase Neg Urine RBC Rare /HPF Urine WBC Occ /HPF Urine Squamous Epithelial Cells Few /LPF Urine Bacteria Few /HPF Serum Test, Qualitative Negative Current Medications Medications (Trade) Dose Ordered Sig/Gianluca Route PRN Reason Start Time Stop Time Status Last Admin Dose Admin Ketorolac Tromethamine (Toradol Im) 60 mg 1X ONCE IM 02/26/19 20:00 02/26/19 20:01 DC 02/26/19 20:06 Morphine Sulfate (Morphine 10mg Syringe) 10 mg 1X ONCE SQ 02/26/19 20:00 02/26/19 20:01 DC 02/26/19 20:07 EKG EKG Not performed[] Radiology/Procedures Radiology/Procedures Not performed[] Course & Med Decision Making Course & Med Decision Making Pertinent Labs and Imaging studies reviewed. (See chart for details) Medical screening examination completed in the emergency department. The patient's current condition appears stable at this time. Urinalysis negative for infection and patient's urine hCG test was negative. The patient currently has an appointment with [facility]IFICATION OPERATOR HELPER in 2 days. Was previously prescribed 30 tablets of Vicoprofen recently from the emergency department. I explained to the patient that narcotic medication could not be refilled from the emergency department and that she would need to follow with her primary doctor or with her PURIFICATION OPERATOR HELPER for reevaluation before further narcotic pain medication could be prescribed for her condition. The patient did receive acute treatment of pain with IM Toradol and subcutaneous morphine in the emergency department. I advised her to keep her appointment with her PURIFICATION OPERATOR HELPER in the next 2 days as scheduled. Recommended return to the emergency department for any worsening symptoms.[] Dragon Disclaimer Dragon Disclaimer This electronic medical record was generated, in whole or in part, using a voice recognition dictation system. Departure Departure: Impression: Primary Impression: Dysfunctional uterine bleeding Additional Impression: Pelvic pain Disposition: HOME, SELF-CARE Condition: STABLE Referrals: BARB HA DO, [facility] (PCP) Patient Instructions: Pelvic Pain, Female, Uterine Bleeding, Dysfunctional, [id number] Additional Instructions: Return to the emergency department for any worsening symptoms. Problem Qualifiers FREDY WILLIAMSON MD Feb 26, 2019 19:53
[2019-02-26] MEDS ORDERED: MORPHINE SULFATE 10 MG/ML SYRINGE. SQ ONE (20:00)
[2019-02-26] MEDS ORDERED: KETOROLAC 60 MG/2 ML VIAL. IM ONE (20:00)
[2019-02-26 20:03] LABS: BACTERIA,URINE FEW /HPF (0-FEW); BILIRUBIN,URINE NEG (NEG); CLARITY,URINE CLEAR; COLOR,URINE YELLOW; GLUCOSE,URINE NEG (NEG); NITRITE,URINE NEG (NEG); RBC,URINE RARE /HPF (0-2); SQUAMOUS EPITHELIAL CELL,UR FEW /LPF; UROBILINOGEN,URINE 0.2 mg/dL (0.2 mg/dL); WBC,URINE OCC /HPF (0-4)
[2019-02-26 20:20] LABS: PREG TEST PT QUAL NEGATIVE (NEG)
[2019-02-26 20:30] VITALS: BP 115/79
== END 2019-02-26 20:50 | disposition home or self-care (01) ==
LOC: ER 18:50
DX: N93.8 Other specified abnormal uterine and vaginal bleeding (principal); R10.2 Pelvic and perineal pain; K58.9 Irritable bowel syndrome, unspecified; Z90.89 Acquired absence of other organs; Z90.49 Acquired absence of other specified parts of digestive tract; Z88.8 Allergy status to other drugs, medicaments and biological substances; Z88.5 Allergy status to narcotic agent
CPT/HCPCS: 81001; 84703; 96372; 99284; J1885; J2270

== ENCOUNTER 2019-04-02 18:07 | Emergency (ER) | payer OTHER ==
[~2019-04-02] VITALS: Ht 162.6 cm; Wt 89.8 kg
[2019-04-02 18:20] VITALS: BP 146/97
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
== END 2019-04-02 18:47 | disposition home or self-care (01) ==
LOC: ER 18:07
DX: S00.33XA Contusion of nose, initial encounter (principal); G89.29 Other chronic pain; Z76.5 Malingerer [conscious simulation]; K58.9 Irritable bowel syndrome, unspecified; F41.9 Anxiety disorder, unspecified; F31.9 Bipolar disorder, unspecified; Z88.5 Allergy status to narcotic agent; Z88.6 Allergy status to analgesic agent; Z88.8 Allergy status to other drugs, medicaments and biological substances; W22.8XXA Striking against or struck by other objects, initial encounter; Y93.89 Activity, other specified; Y92.89 Other specified places as the place of occurrence of the external cause; Y99.8 Other external cause status
CPT/HCPCS: 99281

== ENCOUNTER 2019-05-26 18:13 | Emergency (ER) | payer OTHER ==
[~2019-05-26] VITALS: Ht 162.6 cm; Wt 88.0 kg
[2019-05-26] MEDS ORDERED: METOCLOPRAMIDE HCL 10 MG/2 ML VIAL. IVP ONE (19:45)
[2019-05-26] MEDS ORDERED: IV NORMAL SALINE 1,000ML 1,000 ML IV ONE (19:45)
[2019-05-26] MEDS ORDERED: diphenhydrAMINE 50 MG/ML VIAL IVP ONE (19:45)
[2019-05-26] MEDS ORDERED: KETOROLAC 30 MG/ML VIAL. IVP ONE (20:00)
--- NOTE | 2019-05-26 20:04 | RAD ---
Exam: CT head INDICATION: Severe headache TECHNIQUE: Sequential axial images through the head were obtained without the administration of IV contrast. Comparisons: None FINDINGS: No focal parenchymal lesion or hemorrhage is identified. There is no midline shift or sulcal effacement. No acute vascular territory infarction is identified. Ramírez-white distinction is preserved. The ventricular system is within normal limits without compression hydrocephalus. The basal cisterns are well maintained. The visualized portions of the paranasal sinuses and mastoid air cells are well-pneumatized. No acute fractures. IMPRESSION: No acute intracranial abnormality. Exposure: One or more of the following in the visualized dose reduction techniques were utilized for this examination: 1. Automated exposure control 2. Adjustment of the MA and/or KV according to patient size Use of iterative of reconstructive technique Electronically signed by: Luis Fernando Molina MD (05/26/2019 8:00 PM) [id number]
[2019-05-26 20:16] LABS: BASO % 1 % (0-3); EOS # 0.2 x10^3/uL (0.0-0.7); EOS % 3 % (0-3); HEMATOCRIT 41.6 % (36.0-47.0); HEMOGLOBIN 13.5 g/dL (12.0-15.5); LYMPH # 1.8 x10^3/uL (1.0-4.8); LYMPH % 24 % (24-48); MEAN CORPUSCULAR HEMOGLOBIN 29 pg (25-35); MEAN CORPUSCULAR HGB CONC 33 g/dL (31-37); MEAN CORPUSCULAR VOLUME 89 fL (79-100); MONO # 0.6 x10^3/uL (0.0-1.1); MONO % 9 % (0-9); NEUT # 4.7 x10^3uL (1.8-7.7); NEUT % 64 % (31-73); PLATELET COUNT 415 x10^3/uL (140-400); RED BLOOD COUNT 4.68 x10^6/uL (3.50-5.40); RED CELL DISTRIBUTION WIDTH 14.6 % (11.5-14.5); WHITE BLOOD COUNT 7.3 x10^3/uL (4.0-11.0)
[2019-05-26 20:27] LABS: CALCIUM 9.4 mg/dL (8.5-10.1); GFR 62.4; POTASSIUM 4.1 mmol/L (3.5-5.1)
[2019-05-26 20:29] LABS: BACTERIA,URINE FEW /HPF (0-FEW); BILIRUBIN,URINE NEG (NEG); CLARITY,URINE HAZY; COLOR,URINE YELLOW; GLUCOSE,URINE NEG (NEG); NITRITE,URINE NEG (NEG); RBC,URINE 0 /HPF (0-2); SQUAMOUS EPITHELIAL CELL,UR OCC /LPF; UROBILINOGEN,URINE 0.2 mg/dL (0.2 mg/dL)
[2019-05-26 20:30] LABS: HYALINE CASTS, URINE OCC /HPF; U PREG PATIENT NEGATIVE (NEG)
[2019-05-26 20:32] LABS: ALBUMIN 4.5 g/dL (3.4-5.0); ALBUMIN/GLOBULIN RATIO 1.3 (1.0-1.7); BARBITURATES NEG (NEG); BENZODIAZEPINES NEG (NEG); CANNABINOIDS NEG (NEG); COCAINE NEG (NEG); MAGNESIUM 2.2 mg/dL (1.8-2.4); METHADONE NEG (NEG); OPIATES NEG (NEG); PHENCYCLIDINE NEG (NEG); TOTAL BILIRUBIN 0.5 mg/dL (0.2-1.0); TOTAL PROTEIN 7.9 g/dL (6.4-8.2)
[2019-05-26 20:35] LABS: AMPHETAMINE/METHAMPHETAMINE NEG (NEG)
--- NOTE | 2019-05-26 21:16 | PHYS DOC ---
Past History Past Medical History: Anxiety, Bipolar, Depression, Other Additional Past Medical Histor: BORDERLINE PERSONALITY DISORDER Past Surgical History: Appendectomy, Cholecystectomy, Other Additional Past Surgical Histo: NECK CYST REMOVED, KIDNEY CYST SURGERY, Smoking: Non-smoker Alcohol Use: None Drug Use: None Adult General Chief Complaint Chief Complaint: BACK PAIN OR INJURY HPI HPI Patient is a 39-year-old female who presented to ER today for evaluation of headache, neck pain. Patient has history of chronic neck problem, she also has history of migraine headache. Patient says she has been having headache and neck pain somewhat that she was not able to keep anything down. Patient had not been able to eat anything today. Patient now had tingling and numbness sensation all over body. Patient feels shaky, weak and dehydrated. Patient denies any chest pain, no abdominal pain, no trouble breathing. No cough or fever. She said the pain from the base of her neck radiating to both sides of her shoulders and arms. Review of Systems Review of Systems All other ROS is negative unless otherwise noted in HPI Current Medications Current Medications Current Medications Medications (Trade) Dose Ordered Sig/Gianluca Start Time Stop Time Status Last Admin Dose Admin Diphenhydramine HCl (Benadryl) 25 mg 1X ONCE 05/26/19 19:45 05/26/19 19:46 DC 05/26/19 20:19 25 MG Ketorolac Tromethamine (Toradol 30mg Vial) 30 mg 1X ONCE 05/26/19 20:00 05/26/19 20:01 DC 05/26/19 20:14 30 MG Metoclopramide HCl (Reglan Vial) 10 mg 1X ONCE 05/26/19 19:45 05/26/19 19:46 DC 05/26/19 20:17 10 MG Sodium Chloride 1,000 ml @ 1,000 mls/hr 1X ONCE 05/26/19 19:45 05/26/19 20:44 DC 05/26/19 19:45 1,000 MLS/HR Allergies Allergies Allergies Coded Allergies Type Severity Reaction Last Updated Verified acetaminophen Allergy Unknown 05/07/17 Yes alprazolam Allergy Unknown 12/26/17 Yes oxycodone Allergy Unknown 05/07/17 Yes Physical Exam Physical Exam See above Constitutional: Well developed, well nourished, no acute distress, non-toxic appearance. [] HENT: Normocephalic, atraumatic, bilateral external ears normal, oropharynx moist, no oral exudates, nose normal. [] Eyes: PERRLA, EOMI, conjunctiva normal, no discharge. [] Neck: Normal range of motion, no tenderness, supple, no stridor. [] Cardiovascular:Heart rate regular rhythm, no murmur [] Lungs & Thorax: Bilateral breath sounds clear to auscultation [] Abdomen: Bowel sounds normal, soft, no tenderness, no masses, no pulsatile masses. [] Skin: Warm, dry, no erythema, no rash. [] Back: No tenderness, no CVA tenderness. [] Extremities: No tenderness, no cyanosis, no clubbing, ROM intact, no edema. [] Neurologic: Alert and oriented X 3, normal motor function, normal sensory function, no focal deficits noted. [] Psychologic: Affect normal, judgement normal, mood normal. [] Current Patient Data Vital Signs Vital Signs Date Time Temp Pulse Resp B/P (MAP) Pulse Ox O2 Delivery O2 Flow Rate FiO2 05/26/19 18:23 98.8 67 18 138/89 (105) 97 Room Air Lab Results Laboratory Tests Test 05/26/19 20:07 White Blood Count 7.3 x10^3/uL (4.0-11.0) Red Blood Count 4.68 x10^6/uL (3.50-5.40) Hemoglobin 13.5 g/dL (12.0-15.5) Hematocrit 41.6 % (36.0-47.0) Mean Corpuscular Volume 89 fL (79-100) Mean Corpuscular Hemoglobin 29 pg (25-35) Mean Corpuscular Hemoglobin Concent 33 g/dL (31-37) Red Cell Distribution Width 14.6 % (11.5-14.5) H Platelet Count 415 x10^3/uL (140-400) H Neutrophils (%) (Auto) 64 % (31-73) Lymphocytes (%) (Auto) 24 % (24-48) Monocytes (%) (Auto) 9 % (0-9) Eosinophils (%) (Auto) 3 % (0-3) Basophils (%) (Auto) 1 % (0-3) Neutrophils # (Auto) 4.7 x10^3uL (1.8-7.7) Lymphocytes # (Auto) 1.8 x10^3/uL (1.0-4.8) Monocytes # (Auto) 0.6 x10^3/uL (0.0-1.1) Eosinophils # (Auto) 0.2 x10^3/uL (0.0-0.7) Basophils # (Auto) 0.0 x10^3/uL (0.0-0.2) Urine Collection Type Unknown Urine Color Yellow Urine Clarity [place] Urine pH 5.5 Urine Specific [place] >=1.030 Urine Protein Neg (NEG-TRACE) Urine Glucose (UA) Neg mg/dL (NEG) Urine Ketones (Stick) Trace mg/dL (NEG) Urine Blood Neg (NEG) Urine Nitrite Neg (NEG) Urine Bilirubin Neg (NEG) Urine Urobilinogen Dipstick 0.2 mg/dL (0.2 mg/dL) Urine Leukocyte Esterase Neg (NEG) Urine RBC 0 /HPF (0-2) Urine WBC 1-4 /HPF (0-4) Urine Squamous Epithelial Cells Occ /LPF Urine Bacteria Few /HPF (0-FEW) Urine Hyaline Casts Occ /HPF Urine Mucus Mod /LPF Urine Test Negative (NEG) Sodium Level 139 mmol/L (136-145) Potassium Level 4.1 mmol/L (3.5-5.1) Chloride Level 104 mmol/L (98-107) Carbon Dioxide Level 26 mmol/L (21-32) Anion Gap 9 (6-14) Blood Urea Nitrogen 10 mg/dL (7-20) Creatinine 1.0 mg/dL (0.6-1.0) Estimated GFR (Cockcroft-Gault) 62.4 BUN/Creatinine Ratio 10 (6-20) Glucose Level 95 mg/dL (70-99) Calcium Level 9.4 mg/dL (8.5-10.1) Magnesium Level 2.2 mg/dL (1.8-2.4) Total Bilirubin 0.5 mg/dL (0.2-1.0) Aspartate Amino Transferase (AST) 11 U/L (15-37) L Alanine Aminotransferase (ALT) 17 U/L (14-59) Alkaline Phosphatase 61 U/L (46-116) Total Protein 7.9 g/dL (6.4-8.2) Albumin 4.5 g/dL (3.4-5.0) Albumin/Globulin Ratio 1.3 (1.0-1.7) Lipase 105 U/L (73-393) Urine Opiates Screen Neg (NEG) Urine Methadone Screen Neg (NEG) Urine Barbiturates Neg (NEG) Urine Phencyclidine Screen Neg (NEG) Urine Amphetamine/Methamphetamine Neg (NEG) Urine Benzodiazepines Screen Neg (NEG) Urine Cocaine Screen Neg (NEG) Urine Cannabinoids Screen Neg (NEG) Urine Ethyl Alcohol Neg (NEG) EKG EKG [] Radiology/Procedures Radiology/Procedures [][address] [id number] IMAGING REPORT Signed PATIENT: RIVER TOLEDO ACCOUNT: [id number] : 1980 LOCATION: ER AGE: 39 SEX: F EXAM STATUS: REG ER ORD. PHYSICIAN: LINDA TURPIN DO REASON: Severe headache PROCEDURE: CT HEAD WO CONTRAST Exam: CT head INDICATION: Severe headache TECHNIQUE: Sequential axial images through the head were obtained without the administration of IV contrast. Comparisons: None FINDINGS: No focal parenchymal lesion or hemorrhage is identified. There is no midline shift or sulcal effacement. No acute vascular territory infarction is identified. Ramírez-white distinction is preserved. The ventricular system is within normal limits without compression hydrocephalus. The basal cisterns are well maintained. The visualized portions of the paranasal sinuses and mastoid air cells are well-pneumatized. No acute fractures. IMPRESSION: No acute intracranial abnormality. Exposure: One or more of the following in the visualized dose reduction techniques were utilized for this examination: 1. Automated exposure control 2. Adjustment of the MA and/or KV according to patient size Use of iterative of reconstructive technique Electronically signed by: Luis Fernando Tipton MD (05/26/2019 8:00 PM) [id number] DICTATED AND SIGNED BY: LUIS FERNANDO TIPTON MD DATE: 05/26/191999 CC: LINDA TURPIN DO; BARB HA DO, [facility] ~ Course & Med Decision Making Course & Med Decision Making Pertinent Labs and Imaging studies reviewed. (See chart for details) [] Dragon Disclaimer Dragon Disclaimer This electronic medical record was generated, in whole or in part, using a voice recognition dictation system. Departure Departure: Impression: Primary Impression: Neck pain Additional Impression: Headache Disposition: HOME, SELF-CARE Condition: STABLE Referrals: BARB HA DO, [facility] (PCP) follow up with your doctor this week for reevaluation. Patient Instructions: Cervical Radiculopathy, General Headache Without Cause Additional Instructions: Thank you for visiting our Emergency Department. We appreciate you trusting us with your care. If any additional problems come up don't hesitate to return to visit us. Please follow up with your primary care provider so they can plan additional care if needed and know about the problem that you had. If symptoms worsen come back to the Emergency Department. Any concerning symptoms that start such as chest pain, shortness of air, weakness or numbness on one side of the body, running high fevers or any other concerning symptoms return to the ER. Scripts Ondansetron Hcl (ZOFRAN) 4 Mg Tablet 1 TAB PO Q6HRS for nausea, #12 TAB Prov: LINDA TURPIN DO 05/26/19 Hydrocodone/Ibuprofen (HYDROCODONE-IBUPROFEN 7.5-200 ) 1 Each Tablet 1 TAB PO PRN Q6HRS PRN for PAIN, #12 TAB 0 Refills Prov: LINDA TURPIN DO 05/26/19 Problem Qualifiers LINDA TURPIN DO May 26, 2019 21:16
[2019-05-26] MEDS ORDERED: MORPHINE SULFATE 4 MG/ML DISP.SYRIN. IV ONE (21:45)
[2019-05-26] MEDS ORDERED: MORPHINE SULFATE 4 MG/ML DISP.SYRIN. ONE (21:49)
[2019-05-26] MEDS ORDERED: ONDA4TAB7 PO (21:53)
[2019-05-26] MEDS ORDERED: HYDR-1179 PO (21:53)
[2019-05-26 22:05] VITALS: BP 112/74
== END 2019-05-26 22:10 | disposition home or self-care (01) ==
LOC: ER 18:13
DX: R51 Headache (principal); M54.2 Cervicalgia; R20.2 Paresthesia of skin; Z88.6 Allergy status to analgesic agent; Z88.5 Allergy status to narcotic agent; Z88.8 Allergy status to other drugs, medicaments and biological substances
CPT/HCPCS: 36415; 70450; 80053; 80307; 81001; 81025; 83690; 83735; 85025; 96374; 96375; 99284; J1200; J1885; J2270; J2765; J7030

== ENCOUNTER 2019-05-29 18:07 | Emergency (ER) | payer OTHER ==
[~2019-05-29] VITALS: Ht 162.6 cm; Wt 82.0 kg
[~2019-05-29 18:07] MED LIST changes: +ONDA4TAB7 PO
[2019-05-29 18:10] VITALS: BP 130/89
[2019-05-29] MEDS ORDERED: CODE1CAP8 PO (18:31)
[2019-05-29] MEDS ORDERED: NAPR-682 PO (18:31)
[2019-05-29] MEDS ORDERED: PRED20TA PO (18:31)
--- NOTE | 2019-05-29 18:31 | PHYS DOC ---
Past History Past Medical History: Anxiety, Bipolar, Depression, Other Additional Past Medical Histor: BORDERLINE PERSONALITY DISORDER Past Surgical History: Appendectomy, Cholecystectomy, Other Additional Past Surgical Histo: NECK CYST REMOVED, KIDNEY CYST SURGERY, Smoking: Non-smoker Alcohol Use: None Drug Use: None Adult General Chief Complaint Chief Complaint: MULTIPLE COMPLAINTS HPI HPI Patient is a 39-year-old female with chronic neck pain, chronic headache, presented to ER today for exacerbation of her headache and neck pain. This patient was seen by this physician 3 days ago for the same symptoms. Patient was given prescription for Vicoprofen 12 tablets, she took all the medication, she came back here because she ran out of her medication. Patient is scheduled to see her family doctor on Sunday. Patient says she still has a headache, neck pain. Patient denies any nausea vomiting, no abdominal pain, no fever, no injury. Review of Systems Review of Systems Positive for headache, neck pain No fever, no trauma, no blurred vision All other systems were reviewed and found to be within normal limits, except as documented in this note. Allergies Allergies Allergies Coded Allergies Type Severity Reaction Last Updated Verified acetaminophen Allergy Unknown 05/07/17 Yes alprazolam Allergy Unknown 12/26/17 Yes oxycodone Allergy Unknown 05/07/17 Yes Physical Exam Physical Exam Constitutional: Well developed, well nourished, no acute distress, non-toxic appearance. [] HENT: Normocephalic, atraumatic, bilateral external ears normal, oropharynx moist, no oral exudates, nose normal. [] Eyes: PERRLA, EOMI, conjunctiva normal, no discharge. [] Neck: Normal range of motion, no tenderness, supple, no stridor. [] Cardiovascular:Heart rate regular rhythm, no murmur [] Lungs & Thorax: Bilateral breath sounds clear to auscultation [] Abdomen: Bowel sounds normal, soft, no tenderness, no masses, no pulsatile masses. [] Skin: Warm, dry, no erythema, no rash. [] Back: No tenderness, no CVA tenderness. [] Extremities: No tenderness, no cyanosis, no clubbing, ROM intact, no edema. [] Neurologic: Alert and oriented X 3, normal motor function, normal sensory function, no focal deficits noted. [] Psychologic: Affect normal, judgement normal, mood normal. [] EKG EKG [] Radiology/Procedures Radiology/Procedures [] Course & Med Decision Making Course & Med Decision Making Pertinent Labs and Imaging studies reviewed. (See chart for details) Patient is a 39-year-old female who was evaluated here today due to headache and neck pain. Patient has chronic neck problem, she has been doing the chronic condition for a long time. Patient will need follow-up with pain management for outpatient evaluation and treatment. Dragon Disclaimer Dragon Disclaimer This electronic medical record was generated, in whole or in part, using a voice recognition dictation system. Departure Departure: Impression: Primary Impression: Headache Additional Impression: Cervical radiculopathy Disposition: HOME, SELF-CARE Condition: STABLE Referrals: BARB HA DO, [facility] (PCP) PLEASE FOLLOW UP WITH YOUR DOCTOR ON SUNDAY Patient Instructions: Cervical Radiculopathy, General Headache Without Cause Additional Instructions: Thank you for visiting our Emergency Department. We appreciate you trusting us with your care. If any additional problems come up don't hesitate to return to visit us. Please follow up with your primary care provider so they can plan additional care if needed and know about the problem that you had. If symptoms worsen come back to the Emergency Department. Any concerning symptoms that start such as chest pain, shortness of air, weakness or numbness on one side of the body, running high fevers or any other concerning symptoms return to the ER. Scripts Prednisone (PREDNISONE) 20 Mg Tablet 1 TAB PO DAILY PRN for NECK PAIN, #7 TAB Prov: LINDA TURPIN DO 05/29/19 Naproxen Sodium (ANAPROX DS) 550 Mg Tablet 550 MG PO BID PRN for PAIN, #30 TAB Prov: LINDA TURPIN DO 05/29/19 Codeine/Butalbital/Asa/Caffein (FIORINAL-COD [id number] CAP) 1 Each Capsule 1 EACH PO Q6HRS PRN for HEADACHE, #15 CAP Prov: LINDA TURPIN DO 05/29/19 Problem Qualifiers LINDA TURPIN DO May 29, 2019 18:31
== END 2019-05-29 19:15 | disposition home or self-care (01) ==
LOC: ER 18:07
DX: M54.12 Radiculopathy, cervical region (principal); R51 Headache; G89.29 Other chronic pain; Z88.5 Allergy status to narcotic agent; Z88.8 Allergy status to other drugs, medicaments and biological substances
CPT/HCPCS: 99283

== ENCOUNTER 2019-06-10 16:41 | Emergency (ER) | payer OTHER ==
[~2019-06-10] VITALS: Ht 162.6 cm; Wt 82.0 kg
[~2019-06-10 16:41] MED LIST changes: +CODE1CAP8 PO; +NAPR-682 PO; +PRED20TA PO
--- NOTE | 2019-06-10 16:58 | PHYS DOC ---
Past History Past Medical History: Anxiety, Bipolar, Depression, Hypertension, Other Additional Past Medical Histor: BORDERLINE PERSONALITY DISORDER Past Surgical History: Appendectomy, Cholecystectomy, Other Additional Past Surgical Histo: NECK CYST REMOVED, KIDNEY CYST SURGERY, Smoking: Non-smoker Alcohol Use: None Drug Use: None Adult General Chief Complaint Chief Complaint: HYPERTENSION HPI HPI Patient is a 39-year-old female who presents from [facility] after being instructed to come to the emergency room for blood pressure of 144/115. Patient indicates that she is under a lot of stress right now, indicating that her just left her. She denies any suicidal ideation. Patient states the only reason she came here was because she was told to. Patient denies chest pain or shortness of breath. She does admit to a mild headache. Patient does have history of hypertension and is treated with propranolol.[] Review of Systems Review of Systems Constitutional: Denies fever or chills [] Eyes: Denies change in visual acuity, redness, or eye pain [] Respiratory: Denies cough or shortness of breath [] Cardiovascular: No additional information not addressed in HPI [] Integument: Denies rash or skin lesions [] Neurologic: Complains of headache without focal weakness or sensory changes [] Allergies Allergies Allergies Coded Allergies Type Severity Reaction Last Updated Verified acetaminophen Allergy Unknown 05/07/17 Yes alprazolam Allergy Unknown 12/26/17 Yes oxycodone Allergy Unknown 05/07/17 Yes Physical Exam Physical Exam Constitutional: Well developed, well nourished, no acute distress, non-toxic appearance. [] HENT: Normocephalic, atraumatic, bilateral external ears normal, oropharynx moist, no oral exudates, nose normal. [] Cardiovascular:Heart rate regular rhythm, no murmur [] Lungs & Thorax: Bilateral breath sounds clear to auscultation [] Neurologic: Alert and oriented X 3, no focal deficits noted. [] EKG EKG [] Radiology/Procedures Radiology/Procedures [] Course & Med Decision Making Course & Med Decision Making Pertinent Labs and Imaging studies reviewed. (See chart for details) [] Dragon Disclaimer Dragon Disclaimer This electronic medical record was generated, in whole or in part, using a voice recognition dictation system. Departure Departure: Impression: Primary Impression: Hypertension Disposition: 01 HOME, SELF-CARE Condition: STABLE Referrals: BARB HA DO, [facility] (PCP) Patient Instructions: Hypertension Additional Instructions: Follow-up with your primary care provider in the next few days. Problem Qualifiers Primary Impression: Hypertension Hypertension type: essential hypertension Qualified Codes: I10 - Essential (primary) hypertension ERYN RUSSELL Jr., DO Jun 10, 2019 16:58
[2019-06-10 17:48] VITALS: BP 164/89
== END 2019-06-10 17:25 | disposition home or self-care (01) ==
LOC: ER 16:41
DX: I10 Essential (primary) hypertension (principal); F41.9 Anxiety disorder, unspecified; F31.9 Bipolar disorder, unspecified; Z88.6 Allergy status to analgesic agent; Z88.5 Allergy status to narcotic agent; Z88.8 Allergy status to other drugs, medicaments and biological substances
CPT/HCPCS: 99281

== ENCOUNTER 2019-09-27 18:30 | Emergency (ER) | payer OTHER ==
[~2019-09-27] VITALS: Ht 162.6 cm; Wt 74.5 kg
[2019-09-27 19:06] VITALS: BP 143/99
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
[2019-09-27] MEDS ORDERED: MUPIROCIN 2% TOPICAL OINTMENT 22GM TUBE. TP SCH (19:56)
[2019-09-27 20:52] LABS: BACTERIA,URINE FEW /HPF (0-FEW); BILIRUBIN,URINE NEG (NEG); CLARITY,URINE CLEAR; COLOR,URINE YELLOW; GLUCOSE,URINE NEG (NEG); NITRITE,URINE NEG (NEG); RBC,URINE 0 /HPF (0-2); SQUAMOUS EPITHELIAL CELL,UR FEW /LPF; UROBILINOGEN,URINE 0.2 mg/dL (0.2 mg/dL); WBC,URINE OCC /HPF (0-4)
[2019-09-27 20:54] LABS: U PREG PATIENT NEGATIVE (NEG)
[2019-09-27 20:55] LABS: BARBITURATES NEG (NEG); BENZODIAZEPINES POS (NEG); CANNABINOIDS NEG (NEG); COCAINE NEG (NEG); METHADONE NEG (NEG); OPIATES NEG (NEG); PHENCYCLIDINE NEG (NEG)
[2019-09-27 20:56] LABS: AMPHETAMINE/METHAMPHETAMINE POS (NEG)
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
[2019-09-27] MEDS ORDERED: HYDR-1179 PO (21:43)
[2019-09-27] MEDS ORDERED: HYDROcodon/IBUPROFEN 7.5/200MG 1 TAB TABLET PO ONE (21:45)
== END 2019-09-27 22:06 | disposition home or self-care (01) ==
LOC: EEVIPCON 18:30 → ER 18:30
DX: S41.112A Laceration without foreign body of left upper arm, initial encounter (principal); S41.111A Laceration without foreign body of right upper arm, initial encounter; S63.501A Unspecified sprain of right wrist, initial encounter; S00.83XA Contusion of other part of head, initial encounter; Z88.6 Allergy status to analgesic agent; Z88.5 Allergy status to narcotic agent; Z88.8 Allergy status to other drugs, medicaments and biological substances; Y08.89XA Assault by other specified means, initial encounter; Y93.89 Activity, other specified; Y92.89 Other specified places as the place of occurrence of the external cause; Y99.8 Other external cause status
CPT/HCPCS: 29125; 36415; 70450; 70486; 71046; 72125; 73110; 80307; 81001; 81025; 99285-25

== ENCOUNTER 2019-10-13 18:42 | Emergency (ER) | payer OTHER ==
[~2019-10-13] VITALS: Ht 162.6 cm; Wt 74.5 kg
--- NOTE | 2019-10-13 19:22 | PHYS DOC ---
Past History Past Medical History: Other Additional Past Medical Histor: BORDERLINE PERSONALITY DISORDER Past Surgical History: Other Additional Past Surgical Histo: NECK CYST REMOVED, KIDNEY CYST SURGERY, Smoking: Non-smoker Alcohol Use: None Drug Use: None General Adult EDM: Chief Complaint: KNEE INJURY HPI: HPI: 39-year-old female presents with right knee pain and increased urinary frequen cy. Patient fell on her right knee a year ago and had pain for a while. This resolved. She fell again a couple weeks ago and she has continued to have swelling and pain in this knee. She did not have it evaluated at the time of injury. She is concerned that its not gotten any better. She also complains of increased urinary frequency lately. She feels like she is peeing all the time but is also dehydrated. She denies history of diabetes. She denies fever chills. Review of Systems: Review of Systems: Constitutional: Denies fever or chills Eyes: Denies change in visual acuity HENT: Denies nasal congestion or sore throat Respiratory: Denies cough or shortness of breath Cardiovascular: Denies chest pain or edema GI: Denies abdominal pain, nausea, vomiting, bloody stools or diarrhea : Increased urinary frequency Musculoskeletal: Right knee pain Integument: Denies rash Neurologic: Denies headache, focal weakness or sensory changes Endocrine: Denies polyuria or polydipsia Lymphatic: Denies swollen glands Psychiatric: Denies depression or anxiety Heart Score: Risk Factors: Risk Factors: DM, Current or recent (<one month) smoker, HTN, HLP, family history of CAD, obesity. Risk Scores: Score 0 - 3: 2.5% MACE over next 6 weeks - Discharge Home Score 4 - 6: 20.3% MACE over next 6 weeks - Admit for Clinical Observation Score 7 - 10: 72.7% MACE over next 6 weeks - Early Invasive Strategies Allergies: Allergies: Allergies Coded Allergies Type Severity Reaction Last Updated Verified acetaminophen Allergy Unknown 05/07/17 Yes alprazolam Allergy Unknown 12/26/17 Yes oxycodone Allergy Unknown 05/07/17 Yes Physical Exam: PE: Constitutional: Well developed, well nourished, no acute distress, non-toxic appearance. [] HENT: Normocephalic, atraumatic, bilateral external ears normal, oropharynx moist, no oral exudates, nose normal. [] Eyes: PERRLA, EOMI, conjunctiva normal, no discharge. [] Neck: Normal range of motion, no tenderness, supple, no stridor. [] Cardiovascular:Heart rate regular rhythm, no murmur [] Lungs & Thorax: Bilateral breath sounds clear to auscultation [] Abdomen: Bowel sounds normal, soft, no tenderness, no masses, no pulsatile masses. [] Skin: Warm, dry, no erythema, no rash. [] Back: No tenderness, no CVA tenderness. [] Extremities: Mild swelling of the anterior right knee, no ecchymosis, tenderness in the posterior knee greater than anterior. Negative anterior/posterior drawer. Negative valgus and varus.[] Neurologic: Alert and oriented X 3, normal motor function, normal sensory function, no focal deficits noted. [] Psychologic: Affect normal, judgement normal, mood normal. [] Current Patient Data: Vital Signs: Vital Signs Date Time Temp Pulse Resp B/P (MAP) Pulse Ox O2 Delivery O2 Flow Rate FiO2 10/13/19 18:52 98.7 73 18 122/94 (103) 100 Room Air EKG: EKG: [] Radiology/Procedures: Radiology/Procedures: [] Impressions: EXAM: AP, oblique, lateral and tangential patellar views of the right knee DATE: 10/13/2019 7:18 PM INDICATION: Reason: fall, pain, swelling, X 2+ WEEKS / Spl. Instructions: / History: COMPARISON: No Prior FINDINGS: No evidence of acute fracture or dislocation. Joint spaces are preserved without significant degenerative/proliferative change. Small right knee joint effusion. IMPRESSION: No evidence of acute fracture or dislocation. Electronically signed by: Amandeep Santiago MD (10/13/2019 8:22 PM) [facility] DICTATED AND SIGNED BY: AMANDEEP SANTIAGO MD DATE: 10/13/192021 CC: YANCI BAHENA DO; RAYMON BAUTISTA ~ Course & Med Decision Making: Course & Med Decision Making Pertinent Labs and Imaging studies reviewed. (See chart for details) The patient's x-ray is negative for fracture. The patient has had multiple controlled substance prescriptions in the last month. I gave her 4 morphine in the emergency room and a [place] 7.5 before she was discharged. I will not discharge her with additional medication prescription. She needs to see a specialist and/or pain management. She is stable for discharge at this time. [] Tommy Disclaimer: Tommy Disclaimer: This electronic medical record was generated, in whole or in part, using a voice recognition dictation system. Departure Departure: Impression: Primary Impression: Right knee pain Qualified Codes: M25.561 - Pain in right knee Disposition: HOME/RESIDENCE PRIOR TO ADM Condition: STABLE Referrals: RAYMON BAUTISTA (PCP) Patient Instructions: Knee Pain, [id number] Additional Instructions: Please follow-up with [facility] orthopedic group for your knee pain. Their phone number is [phone]. Justification of Admission: Justification of Admission: Justification of Admission Dx: N/A YANCI BAHENA DO Oct 13, 2019 19:22
[2019-10-13] MEDS ORDERED: MORPHINE SULFATE 2 MG/ML DISP.SYRIN. IV ONE (19:30)
[2019-10-13] MEDS ORDERED: ONDANSETRON PF 4 MG/2 ML VIAL. IVP ONE (19:30)
[2019-10-13] MEDS ORDERED: IV NORMAL SALINE 1,000ML 1,000 ML IV ONE (19:30)
[2019-10-13 20:00] LABS: AMPHETAMINE/METHAMPHETAMINE NEG (NEG); BARBITURATES NEG (NEG); BENZODIAZEPINES NEG (NEG); CANNABINOIDS NEG (NEG); COCAINE NEG (NEG); METHADONE NEG (NEG); OPIATES NEG (NEG); PHENCYCLIDINE NEG (NEG)
[2019-10-13 20:02] LABS: BACTERIA,URINE 0 /HPF (0-FEW); BILIRUBIN,URINE NEG (NEG); CLARITY,URINE CLEAR; COLOR,URINE STRAW; GLUCOSE,URINE NEG (NEG); NITRITE,URINE NEG (NEG); RBC,URINE 0 /HPF (0-2); SQUAMOUS EPITHELIAL CELL,UR OCC /LPF; UROBILINOGEN,URINE 0.2 mg/dL (0.2 mg/dL); WBC,URINE 0 /HPF (0-4)
[2019-10-13 20:17] LABS: BASO % 0 % (0-3); EOS # 0.1 x10^3/uL (0.0-0.7); EOS % 1 % (0-3); HEMATOCRIT 35.3 % (36.0-47.0); HEMOGLOBIN 11.6 g/dL (12.0-15.5); LYMPH # 2.1 x10^3/uL (1.0-4.8); LYMPH % 28 % (24-48); MEAN CORPUSCULAR HEMOGLOBIN 31 pg (25-35); MEAN CORPUSCULAR HGB CONC 33 g/dL (31-37); MEAN CORPUSCULAR VOLUME 93 fL (79-100); MONO # 0.8 x10^3/uL (0.0-1.1); MONO % 11 % (0-9); NEUT # 4.6 x10^3uL (1.8-7.7); NEUT % 60 % (31-73); PLATELET COUNT 281 x10^3/uL (140-400); RED BLOOD COUNT 3.79 x10^6/uL (3.50-5.40); RED CELL DISTRIBUTION WIDTH 14.9 % (11.5-14.5); WHITE BLOOD COUNT 7.6 x10^3/uL (4.0-11.0)
[2019-10-13 20:20] LABS: CALCIUM 8.7 mg/dL (8.5-10.1); CREATININE 0.9 mg/dL (0.6-1.0); GFR 70.5
--- NOTE | 2019-10-13 20:25 | RAD ---
EXAM: AP, oblique, lateral and tangential patellar views of the right knee DATE: 10/13/2019 7:18 PM INDICATION: Reason: fall, pain, swelling, X 2+ WEEKS / Spl. Instructions: / History: COMPARISON: No Prior FINDINGS: No evidence of acute fracture or dislocation. Joint spaces are preserved without significant degenerative/proliferative change. Small right knee joint effusion. IMPRESSION: No evidence of acute fracture or dislocation. Electronically signed by: Amandeep Santiago MD (10/13/2019 8:22 PM) TOPHER
[2019-10-13 20:26] LABS: ALBUMIN 3.6 g/dL (3.4-5.0); ALBUMIN/GLOBULIN RATIO 1.4 (1.0-1.7); TOTAL BILIRUBIN 0.3 mg/dL (0.2-1.0); TOTAL PROTEIN 6.2 g/dL (6.4-8.2)
[2019-10-13] MEDS ORDERED: HYDROcodone/APAP 7.5/325MG 1 TAB TABLET PO ONE (20:45)
[2019-10-13 20:52] VITALS: BP 134/77
== END 2019-10-13 21:00 | disposition home or self-care (01) ==
LOC: ER 18:42
DX: M25.561 Pain in right knee (principal); R60.0 Localized edema; F60.3 Borderline personality disorder; Z98.890 Other specified postprocedural states; Z88.5 Allergy status to narcotic agent; Z88.8 Allergy status to other drugs, medicaments and biological substances; Z88.6 Allergy status to analgesic agent
CPT/HCPCS: 36415; 73564; 80053; 80307; 81001; 85025; 96361; 96374; 96375; 99285; J2270; J2405; J7030; 81025

== ENCOUNTER 2019-11-03 15:19 | Emergency (ER) | payer OTHER ==
[~2019-11-03] VITALS: Ht 162.6 cm; Wt 74.5 kg
[2019-11-03 15:24] VITALS: BP 134/77
--- NOTE | 2019-11-03 15:52 | PHYS DOC ---
Past History Past Medical History: Endometriosis, Other Additional Past Medical Histor: BORDERLINE PERSONALITY DISORDER, chronic back pain Past Surgical History: Other Additional Past Surgical Histo: NECK CYST REMOVED, KIDNEY CYST SURGERY, Smoking: Non-smoker Alcohol Use: None Drug Use: None General Adult EDM: Chief Complaint: BACK PAIN OR INJURY HPI: HPI: 39-year-old female presents to the ED complaining of serious pain in the upper cervical spine and lower lumbar spine. The pain began yesterday after [place] the whole [place] the [place] ". Patient states that the pain is so severe that she cannot control herself from shaking. Also she says that she is in such severe pain that she is confused. When asked to elaborate what she meant by confused she was unable to do so, she only said it was hard to think straight. She says that she frequently sees a pain medical doctor who has given her pain medications. She stated that she was under pain medication contract with that doctor, but then retracted the statement and said that she does not know if she did sign a contract. The patient states that she has not received any medications in the last month from any doctors at all. The patient says that no medications that she has currently are helping with the pain. States that she is currently taking Toradol for the pain. By accessing [facility] we were able to show her that she has had medications for pain from doctors within the last month. She then stated that she had forgotten about medications and became flustered. Patient states that she just wants "something to make it to her next visit with her pain doctor." Review of Systems: Review of Systems: Constitutional: Denies fever or chills Eyes: Denies change in visual acuity HENT: Denies nasal congestion or sore throat Respiratory: Denies cough or shortness of breath Cardiovascular: Denies chest pain or edema GI: Denies abdominal pain, nausea, vomiting, bloody stools or diarrhea : Denies dysuria Musculoskeletal: Denies back pain or joint pain Integument: Denies rash Neurologic: Denies headache, focal weakness or sensory changes Endocrine: Denies polyuria or polydipsia Lymphatic: Denies swollen glands Psychiatric: Denies depression or anxiety Allergies: Allergies: Allergies Coded Allergies Type Severity Reaction Last Updated Verified acetaminophen Allergy Unknown 05/07/17 Yes alprazolam Allergy Unknown 12/26/17 Yes oxycodone Allergy Unknown 05/07/17 Yes Physical Exam: PE: Constitutional: Well developed, well nourished, no acute distress, non-toxic appearance Eyes: PERRL, EOMI, conjunctiva normal, no discharge Neck: Normal range of motion, no tenderness, supple Lungs & Thorax: In no respiratory distress chest rise and fall bilaterally equal ly Abdomen: Soft, no tenderness Skin: Warm, dry, no erythema, no rash Back: Cervical spine tenderness and lumbar tenderness Extremities: No tenderness, ROM intact, no edema Neurologic: Alert and oriented X 3, normal motor function, normal sensory function, no focal deficits noted Psychologic: Affect normal, judgment normal EKG: EKG: [] Radiology/Procedures: Radiology/Procedures: [] Course & Med Decision Making: Course & Med Decision Making Patient presented to the ED with complaints of upper cervical spine pain and lower lumbar pain after spending the entire day yesterday at the [employer] park "[employer] ". Patient said that she just needs medications for pain to make it to her next appoint with her pain management doctor, because she ran out of all the medications that that doctor prescribed her. Patient states that she has not received any medications in the last month which had a cot directed what we had seen on [facility]. She was prescribed over 90 tablets of multiple medications in the past 2 weeks. As a result of patient not being forthcoming in regards to medications recently prescribed to her which shows potential drug- seeking behavior. As result I decided not to prescribe narcotics to this patient, but I have advised her to reach out to her pain management doctor to see them as soon as possible. Tommy Disclaimer: Tommy Disclaimer: This electronic medical record was generated, in whole or in part, using a voice recognition dictation system. 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 Unfortunately we were unable to give further narcotic pain medication to you today. In the future, please also be truthful regarding any controlled substances that you have been given. Justification of Admission: Justification of Admission: Justification of Admission Dx: N/A ONOFRE,IDA R DO Nov 03, 2019 15:52
[2019-11-03] MEDS ORDERED: KETOROLAC 30 MG/ML VIAL. IM ONE (16:00)
== END 2019-11-03 16:37 | disposition home or self-care (01) ==
LOC: ER 15:19
DX: G89.29 Other chronic pain (principal); M54.6 Pain in thoracic spine; M54.5 Low back pain; R41.0 Disorientation, unspecified; F60.3 Borderline personality disorder; Z88.6 Allergy status to analgesic agent; Z88.5 Allergy status to narcotic agent; Z88.8 Allergy status to other drugs, medicaments and biological substances
CPT/HCPCS: 99281

== ENCOUNTER 2019-11-14 21:17 | Emergency (ER) | payer OTHER ==
[~2019-11-14] VITALS: Ht 162.6 cm; Wt 74.5 kg
[2019-11-14] MEDS ORDERED: IV RINGERS SOLUTION,LACTATED 1,000 ML IV SCH (21:28)
[2019-11-14] MEDS ORDERED: MORPHINE SULFATE 10 MG/ML SYRINGE. SQ ONE (22:30)
[2019-11-14 22:31] LABS: AMPHETAMINE/METHAMPHETAMINE NEG (NEG); BARBITURATES NEG (NEG); BENZODIAZEPINES NEG (NEG); CANNABINOIDS NEG (NEG); COCAINE NEG (NEG); METHADONE NEG (NEG); OPIATES NEG (NEG); PHENCYCLIDINE NEG (NEG)
[2019-11-14 22:33] LABS: BASO % 0 % (0-3); EOS # 0.1 x10^3/uL (0.0-0.7); EOS % 1 % (0-3); HEMATOCRIT 38.2 % (36.0-47.0); HEMOGLOBIN 12.5 g/dL (12.0-15.5); LYMPH # 2.1 x10^3/uL (1.0-4.8); LYMPH % 24 % (24-48); MEAN CORPUSCULAR HEMOGLOBIN 31 pg (25-35); MEAN CORPUSCULAR HGB CONC 33 g/dL (31-37); MEAN CORPUSCULAR VOLUME 94 fL (79-100); MONO # 1.2 x10^3/uL (0.0-1.1); MONO % 13 % (0-9); NEUT # 5.5 x10^3uL (1.8-7.7); NEUT % 61 % (31-73); PLATELET COUNT 393 x10^3/uL (140-400); RED BLOOD COUNT 4.05 x10^6/uL (3.50-5.40); RED CELL DISTRIBUTION WIDTH 15.7 % (11.5-14.5); WHITE BLOOD COUNT 8.9 x10^3/uL (4.0-11.0)
[2019-11-14 22:42] LABS: CALCIUM 9.2 mg/dL (8.5-10.1); CREATININE 1.1 mg/dL (0.6-1.0); GFR 55.9
[2019-11-14 22:47] LABS: ALBUMIN 3.7 g/dL (3.4-5.0); DIRECT BILIRUBIN 0.1 mg/dL (0.0-0.2); TOTAL BILIRUBIN 0.2 mg/dL (0.2-1.0); TOTAL PROTEIN 6.8 g/dL (6.4-8.2)
[2019-11-14 23:27] LABS: BILIRUBIN,URINE NEG (NEG); CLARITY,URINE CLEAR; COLOR,URINE STRAW; GLUCOSE,URINE NEG (NEG)
[2019-11-14 23:28] LABS: BACTERIA,URINE FEW /HPF (0-FEW); NITRITE,URINE NEG (NEG); RBC,URINE 0 /HPF (0-2); SQUAMOUS EPITHELIAL CELL,UR FEW /LPF; UROBILINOGEN,URINE 0.2 mg/dL (0.2 mg/dL); WBC,URINE 0 /HPF (0-4)
--- NOTE | 2019-11-15 00:28 | RAD ---
INDICATION: Reason: pain - est.8 weeks, ovarian cyst COMPARISON: None. TECHNIQUE: Grayscale and color ultrasound images uterus and adnexa. Transabdominal and transvaginal images obtained. Transvaginal images were needed to better visualize structures that were limited on transabdominal imaging. FINDINGS: Uterus: 91 x 62 x 52 mm. Intrauterine gestational sac is identified with a yolk sac seen. No definite pole is seen at this time. 16 x 13 mm dominant follicle or small cyst of right ovary. Hypoechoic lesion of the left ovary measuring approximately 12 mm with some internal complexity. Some possible causes would include a small hemorrhagic cyst or follicle. Right Ovary: 33 x 23 x 19 mm. Left Ovary: 39 x 24 x 17 mm. Vascular flow identified to bilateral ovaries. IMPRESSION: * Intrauterine gestational sac is identified without a pole seen at this time. This correlates with approximately 6 weeks and 5 days gestation. Follow-up could be obtained to ensure appropriate development of a pole to ensure that there is not early failure. This could also be from early gestation prior to development of visualized pole. Electronically signed by: Jared Bianchi MD (11/15/2019 12:25 AM) [id number]
--- NOTE | 2019-11-15 01:03 | PHYS DOC ---
Past History Past Medical History: Constipation, Endometriosis, Ovarian Cyst, STD, Other Additional Past Medical Histor: BORDERLINE PERSONALITY DISORDER, chronic back pain Past Medical History Hx. of possible narcotic seeking behaviors, Past Surgical History: Appendectomy, Cholecystectomy, Other Additional Past Surgical Histo: NECK CYST REMOVED, KIDNEY CYST SURGERY, Smoking: Non-smoker Alcohol Use: None Drug Use: None General Adult EDM: Chief Complaint: ABDOMINAL PAIN IN HPI: HPI: ".. I ve been having a lot of pain with this .. I was at [facility]... and then at [facility] on [facility]. .... because of my pain issues.. with this ....My doctor says .. I usually need more pain meds than most people..." "I get lots of pain in the my abdomen before this .. I have chronic endometriosis and ovarian cysts..." Patient is a 39 year old female who presents with above hx and complaints of pelvic pain with . Patient estimates she is less than6-8 weeks . Has had work-up at [facility] and [facility] on [facility]. Patient states ultrasounds at [facility] showed an intrauterine but they did not see a heart rate. She has a history of 2 term 1. Did have eclampsia with 1 st requiring early delivery. Patient has history of ovarian cyst and endometriosis with episodes of abdomen pain related to these diagnoses. Has had one STD chlamydia which was treated when she was 20 years old. Patient denies any current fears or risk of STD. Patient has had 8 lifetime sex partners. Currently has only 1 sex partner for the last several years. Patient plans on following at for this . Patient denies any history of trauma. Patient denies any immunosuppression. Patient denies any fever or chills. Patient denies any history of bad food intake. Patient denies any travel or specific ill contacts. Review of Systems: Review of Systems: Constitutional: Denies fever or chills Eyes: Denies change in visual acuity HENT: Denies nasal congestion or sore throat Respiratory: Denies cough or shortness of breath Cardiovascular: Denies chest pain or edema GI: Complaints of frequent abdominal pain, Hx nausea and abdomen pain with this , Denies, vomiting, bloody stools or diarrhea : Denies dysuria Musculoskeletal: Complaints of chronic back pain Integument: Denies rash Neurologic: Denies headache, focal weakness or sensory changes Endocrine: Denies polyuria or polydipsia Lymphatic: Denies swollen glands Psychiatric: Denies depression or anxiety Heart Score: Risk Factors: Risk Factors: DM, Current or recent (<one month) smoker, HTN, HLP, family history of CAD, obesity. Risk Scores: Score 0 - 3: 2.5% MACE over next 6 weeks - Discharge Home Score 4 - 6: 20.3% MACE over next 6 weeks - Admit for Clinical Observation Score 7 - 10: 72.7% MACE over next 6 weeks - Early Invasive Strategies Family History: Family History: Noncontributory to presentation Current Medications: Current Meds: See nursing for home meds Current Medications Medications (Trade) Dose Ordered Sig/Gianluca Start Time Stop Time Status Last Admin Dose Admin Lactated Ringer's 1,000 ml @ 1,000 mls/hr Q1H 11/14/19 21:28 11/14/19 22:27 DC 11/14/19 22:05 1,000 MLS/HR Morphine Sulfate (Morphine 10mg Syringe) 10 mg 1X ONCE 11/14/19 22:30 11/14/19 22:33 DC 11/14/19 22:59 10 MG Allergies: Allergies: Allergies Coded Allergies Type Severity Reaction Last Updated Verified alprazolam Allergy Unknown 12/26/17 Yes oxycodone Allergy Unknown 05/07/17 Yes Physical Exam: PE: Constitutional: Well developed, well nourished, moderate acute distress, non- toxic appearance. [] HENT: Normocephalic, atraumatic, bilateral external ears normal, oropharynx moist, no oral exudates, nose normal. [] Eyes: PERRLA, EOMI, conjunctiva normal, no discharge. [] Neck: Normal range of motion, no tenderness, supple, no stridor. [] Cardiovascular:Heart rate regular rhythm, no murmur [] Lungs & Thorax: Bilateral breath sounds equal at apex on auscultation [] Abdomen: Bowel sounds decreased, soft, lower pelvic tenderness, no masses, no pulsatile masses. [] Pelvic exam-no bleeding noted. Some left adnexal tenderness. Rectal exam hard stool in vault. Scant discharge. Distended. Some rebound to Lt. lower abdomen. Skin: Warm, dry, no erythema, no rash. [] Back: No tenderness, no CVA tenderness. [] Extremities: No tenderness, no cyanosis, no clubbing, ROM intact, no edema. [] No psoas sign bilaterally. No cording. Neurologic: Alert and oriented X 3, normal motor function, normal sensory function, no focal deficits noted. [] DTRs +2 patellar and brachial Psychologic: Affect anxious, judgement normal, mood normal. [] Current Patient Data: Labs: Laboratory Tests Test 11/14/19 21:40 11/14/19 21:53 11/14/19 22:10 Urine Collection Type Unknown Urine Color Straw Urine Clarity Clear Urine pH 6.5 Urine Specific [place] <=1.005 Urine Protein Neg (NEG-TRACE) Urine Glucose (UA) Neg mg/dL (NEG) Urine Ketones (Stick) Neg mg/dL (NEG) Urine Blood Neg (NEG) Urine Nitrite Neg (NEG) Urine Bilirubin Neg (NEG) Urine Urobilinogen Dipstick 0.2 mg/dL (0.2 mg/dL) Urine Leukocyte Esterase Neg (NEG) Urine RBC 0 /HPF (0-2) Urine WBC 0 /HPF (0-4) Urine Squamous Epithelial Cells Few /LPF Urine Bacteria Few /HPF (0-FEW) Urine Opiates Screen Neg (NEG) Urine Methadone Screen Neg (NEG) Urine Barbiturates Neg (NEG) Urine Phencyclidine Screen Neg (NEG) Urine Amphetamine/Methamphetamine Neg (NEG) Urine Benzodiazepines Screen Neg (NEG) Urine Cocaine Screen Neg (NEG) Urine Cannabinoids Screen Neg (NEG) Urine Ethyl Alcohol Neg (NEG) POC Urine HCG, Qualitative hcg positive (Negative) White Blood Count 8.9 x10^3/uL (4.0-11.0) Red Blood Count 4.05 x10^6/uL (3.50-5.40) Hemoglobin 12.5 g/dL (12.0-15.5) Hematocrit 38.2 % (36.0-47.0) Mean Corpuscular Volume 94 fL (79-100) Mean Corpuscular Hemoglobin 31 pg (25-35) Mean Corpuscular Hemoglobin Concent 33 g/dL (31-37) Red Cell Distribution Width 15.7 % (11.5-14.5) H Platelet Count 393 x10^3/uL (140-400) Neutrophils (%) (Auto) 61 % (31-73) Lymphocytes (%) (Auto) 24 % (24-48) Monocytes (%) (Auto) 13 % (0-9) H Eosinophils (%) (Auto) 1 % (0-3) Basophils (%) (Auto) 0 % (0-3) Neutrophils # (Auto) 5.5 x10^3uL (1.8-7.7) Lymphocytes # (Auto) 2.1 x10^3/uL (1.0-4.8) Monocytes # (Auto) 1.2 x10^3/uL (0.0-1.1) H Eosinophils # (Auto) 0.1 x10^3/uL (0.0-0.7) Basophils # (Auto) 0.0 x10^3/uL (0.0-0.2) Maternal Serum HCG Beta Subunit 31322 mIU/mL (0-6) H Sodium Level 140 mmol/L (136-145) Potassium Level 4.0 mmol/L (3.5-5.1) Chloride Level 106 mmol/L (98-107) Carbon Dioxide Level 28 mmol/L (21-32) Anion Gap 6 (6-14) Blood Urea Nitrogen 7 mg/dL (7-20) Creatinine 1.1 mg/dL (0.6-1.0) H Estimated GFR (Cockcroft-Gault) 55.9 Glucose Level 64 mg/dL (70-99) L Calcium Level 9.2 mg/dL (8.5-10.1) Total Bilirubin 0.2 mg/dL (0.2-1.0) Direct Bilirubin 0.1 mg/dL (0.0-0.2) Aspartate Amino Transferase (AST) 10 U/L (15-37) L Alanine Aminotransferase (ALT) 70 U/L (14-59) H Alkaline Phosphatase 130 U/L (46-116) H Total Protein 6.8 g/dL (6.4-8.2) Albumin 3.7 g/dL (3.4-5.0) Amylase Level 36 U/L (25-115) Lipase 212 U/L (73-393) Microbiology 11/14/19 Wet Prep - Final, Complete Vital Signs: Vital Signs Date Time Temp Pulse Resp B/P (MAP) Pulse Ox O2 Delivery O2 Flow Rate FiO2 11/14/19 23:55 70 18 129/94 (106) 98 Room Air 11/14/19 21:44 98.2 EKG: EKG: [] Radiology/Procedures: Radiology/Procedures: [][address] [address] IMAGING REPORT Signed PATIENT: RIVER TOLEDO ACCOUNT: [id number] : 1980 LOCATION: ER AGE: 39 SEX: F EXAM STATUS: REG ER ORD. PHYSICIAN: BRENTON PARKER MD REASON: pain - est.8 weeks, ovarian cyst, last US no heart rate dect- 7wk PROCEDURE: OB <14 WKS INDICATION: Reason: pain - est.8 weeks, ovarian cyst COMPARISON: None. TECHNIQUE: Grayscale and color ultrasound images uterus and adnexa. Transabdominal and transvaginal images obtained. Transvaginal images were needed to better visualize structures that were limited on transabdominal imaging. FINDINGS: Uterus: 91 x 62 x 52 mm. Intrauterine gestational sac is identified with a yolk sac seen. No definite pole is seen at this time. 16 x 13 mm dominant follicle or small cyst of right ovary. Hypoechoic lesion of the left ovary measuring approximately 12 mm with some internal complexity. Some possible causes would include a small hemorrhagic cyst or follicle. Right Ovary: 33 x 23 x 19 mm. Left Ovary: 39 x 24 x 17 mm. Vascular flow identified to bilateral ovaries. IMPRESSION: * Intrauterine gestational sac is identified without a pole seen at this time. This correlates with approximately 6 weeks and 5 days gestation. Follow-up could be obtained to ensure appropriate development of a pole to ensure that there is not early failure. This could also be from early gestation prior to development of visualized pole. Electronically signed by: Yeni Hopson MD (11/15/2019 12:25 AM) [id number] DICTATED AND SIGNED BY: YENI HOPSON MD DATE: 11/15/19 0025 CC: BRENTON PARKER MD; [facility] EM APRN ~ Course & Med Decision Making: Course & Med Decision Making Pertinent Labs and Imaging studies reviewed. (See chart for details) Patient take only Tylenol for pain. For marked pain may take a Percocet up to 4 times a day. Patient stay on a clear fluid diet as long she has abdomen pain. Patient to take her vitamins. Patient must follow-up pending cultures. Patient take Keflex 500 mg 3 times a day. Must follow-up with OB. If continued pain must present at the hospital where she plans to deliver or have her OB care. Must have a repeat beta hCG in 3 days. Must have a repeat ultrasound in 3 days. Discussed risks of missed ectopic since with no heart rate or pole noted on ultrasound of the cyst intrauterine. Patient given a copy of ultrasound to take with her on follow-up with her OB. Does have a scheduled follow-up on Sunday; however if increased pain must have re-exam before then. Stay on a clear fluid diet if having abdomen pain. Must follow-up cultures. Pelvic rest. Risk of narcotic dependence discussed with patient. Discussed with pt. at length risk of Ectopic and need for prompt follow up and re-exam especially in no improvement. Hx. of chlamydia as a teenager, her endometriosis could place her at increased risk for ectopic . Pt. currently declines transfer for admission or further evaluation at or hospital that has [employer] care at this time. Impression: 1. with Abdomen Pain 2. Hx. endometriosis 3. History ovarian cysts 4. Beta-hCG 12, 380 5 Pt. blood type O+ 6. Bacterial vaginosis 7. Hemoglobin 12.5 8. Gravid 2, T 1 9. Hx. Prior hypertension and eclampsia with her first 10. Alk phos elevated 130 ALT elevated 78 11. Bacterial vaginosis-clue cells [] Tommy Disclaimer: Tommy Disclaimer: This electronic medical record was generated, in whole or in part, using a voice recognition dictation system. Departure Departure: Disposition: HOME/RESIDENCE PRIOR TO ADM Condition: STABLE Referrals: OCTAVIO EM APRN (PCP) Scripts Oxycodone HCl/Acetaminophen (Percocet 5-325 mg Tablet) 1 Each Tablet 1 TAB PO PRN QID PRN for excessive pain MDD 4 Tablet(s) for 5 Days, #30 TAB 0 Refills Prov: BRENTON PARKER MD 11/15/19 Cephalexin (KEFLEX) 500 Mg Capsule 500 MG PO TID for bacterial vaginosis, #21 BOT Prov: BRENTON PARKER MD 11/15/19 Justification of Admission: Justification of Admission: Justification of Admission Dx: N/A Tommy Disclaimer This chart was dictated in whole or in part using Voice Recognition software in a busy, high-work load, and often noisy Emergency Department environment. It may contain unintended and wholly unrecognized errors or omissions. Dragon Disclaimer This chart was dictated in whole or in part using Voice Recognition software in a busy, high-work load, and often noisy Emergency Department environment. It may contain unintended and wholly unrecognized errors or omissions. BRENTON PARKER MD Nov 15, 2019 01:03
[2019-11-15 01:25] VITALS: BP 118/74
[2019-11-15] MEDS ORDERED: CEPHALEXIN 250 MG CAPSULE ONE (01:56)
[2019-11-15] MEDS ORDERED: CEPHALEXIN 250 MG CAPSULE PO ONE (02:00)
[2019-11-15] MEDS ORDERED: CEPH-264 PO (02:10)
[2019-11-15] MEDS ORDERED: OXYC-325 PO (02:10)
[2019-11-15] MEDS ORDERED: MORPHINE SULFATE 10 MG/ML SYRINGE. ONE (03:06)
[2019-11-15] MEDS ORDERED: MORPHINE SULFATE 10 MG/ML SYRINGE. SQ ONE (03:15)
[2019-11-17 22:07] LABS: CHLAMYDIA PROBE Negative (Negative)
== END 2019-11-15 03:10 | disposition home or self-care (01) ==
LOC: ER 21:17
DX: O23.591 Infection of other part of genital tract in pregnancy, first trimester (principal); B96.89 Other specified bacterial agents as the cause of diseases classified elsewhere; R79.89 Other specified abnormal findings of blood chemistry; G89.29 Other chronic pain; O16.1 Unspecified maternal hypertension, first trimester; Z90.49 Acquired absence of other specified parts of digestive tract; Z90.89 Acquired absence of other organs; Z3A.01 Less than 8 weeks gestation of pregnancy; Z88.5 Allergy status to narcotic agent; Z88.8 Allergy status to other drugs, medicaments and biological substances
CPT/HCPCS: 76801; 80048; 80076; 80307; 81001; 81025; 82150; 83690; 84702; 85025; 86592; 86705; 86709; 86803; 86900; 86901; 87340; 87491; 87591; 96360; 96372; 99284; J2270; J7120; Q0111; 36415

== ENCOUNTER 2019-11-19 19:22 | Emergency (ER) | payer OTHER ==
[~2019-11-19] VITALS: Ht 162.6 cm; Wt 74.5 kg
[~2019-11-19 19:22] MED LIST changes: +CEPH-264 PO; +OXYC-325 PO
--- NOTE | 2019-11-19 19:29 | PHYS DOC ---
Past History Past Medical History: Constipation, Endometriosis, Ovarian Cyst, STD, Other Additional Past Medical Histor: BORDERLINE PERSONALITY DISORDER, chronic back pain, drug seeking behavior Past Surgical History: Appendectomy, Cholecystectomy, Other Additional Past Surgical Histo: NECK CYST REMOVED, KIDNEY CYST SURGERY, Smoking: Non-smoker Alcohol Use: None Drug Use: None General Adult HPI: HPI: "..I am still having abdomen pain... I followed up at ...and they said I had an Ectopic ... and see them tomorrow morning.." Patient is a 39 year old female who presents with above hx and complaints of abdomen pain with this pregancy.. I previously seen this patient on 11/13 and for abdomen pain. . Patient at that time did have a beta-hCG of 12,380. Patient was to keep follow-ups at where she plans to deliver. Patient has been at other hospitals for evaluation of her abdomen pain with this was seen at [facility] and also seen at [facility] as well as . Patient does have a history of chronic endometriosis and ovarian cyst. Patient has estimated her to be between 6 to 8 weeks. Patient did have eclampsia with her first . She is 2 term 1. She has had a previous history of STD chlamydia when she is 20 years old. Patient currently denies any risk of STD. Has had 8 lifetime sex partners. Patient denies any trauma. Patient denies any immunosuppression. Denies any fever chills. Patient denies any intake of bad food. Patient denies any travel. Patient denies specific ill contacts. Pt.follows with Michael perea and Dr. Fernandez FRUIT BU[facility]ER at . Seen at yesterday advised she had an Ectopic , has apt. tomorrow. Review of Systems: Review of Systems: Constitutional: Denies fever or chills Eyes: Denies change in visual acuity HENT: Denies nasal congestion or sore throat Respiratory: Denies cough or shortness of breath Cardiovascular: Denies chest pain or edema GI: Complaints of abdominal pain, nausea,.Denies vomiting, bloody stools or diarrhea : Denies dysuria Musculoskeletal: Denies back pain or joint pain Integument: Denies rash Neurologic: Denies headache, focal weakness or sensory changes Endocrine: Denies polyuria or polydipsia Lymphatic: Denies swollen glands Psychiatric: Denies depression or anxiety Heart Score: Risk Factors: Risk Factors: DM, Current or recent (<one month) smoker, HTN, HLP, family history of CAD, obesity. Risk Scores: Score 0 - 3: 2.5% MACE over next 6 weeks - Discharge Home Score 4 - 6: 20.3% MACE over next 6 weeks - Admit for Clinical Observation Score 7 - 10: 72.7% MACE over next 6 weeks - Early Invasive Strategies Family History: Family History: Noncontributory Current Medications: Current Meds: See nursing for home meds Allergies: Allergies: Allergies Coded Allergies Type Severity Reaction Last Updated Verified alprazolam Allergy Unknown 12/26/17 Yes oxycodone Allergy Unknown 05/07/17 Yes Physical Exam: PE: Constitutional:Reports acute distress, non-toxic appearance. [] HENT: Normocephalic, atraumatic, bilateral external ears normal, oropharynx moist, no oral exudates, nose normal. [] Eyes: PERRLA, EOMI, conjunctiva normal, no discharge. [] Neck: Normal range of motion, no tenderness, supple, no stridor. [] Cardiovascular:Heart rate regular rhythm, no murmur [] Lungs & Thorax: Bilateral breath sounds clear to auscultation [] Abdomen: Bowel sounds normal, soft, generalized abdomen tenderness, no masses, no pulsatile masses. Distended. Os. closed. Some scant discharge. Hard stool in vault. Unable to localized lower pelvic pain tonight to either side. Skin: Warm, dry, no erythema, no rash. [] Back: No tenderness, no CVA tenderness. [] Extremities: No tenderness, no cyanosis, no clubbing, ROM intact, no edema. No true psoas sign Neurologic: Alert and oriented X 3, normal motor function, normal sensory function, no focal deficits noted. [] Psychologic: Affect anxious , judgement normal, mood normal. [] EKG: EKG: [] Radiology/Procedures: Radiology/Procedures: [][address] [address] IMAGING REPORT Signed PATIENT: RIVER TOLEDO ACCOUNT: [id number] : 1980 LOCATION: ER AGE: 39 SEX: F EXAM STATUS: REG ER ORD. PHYSICIAN: BRENTON PARKER MD REASON: bleeding,pain, 8 weekS, PREV SONO DONE LAST WEEK. SAW OB DR KUMAR. PROCEDURE: OB <14 WKS W/TV Exam: Ultrasound OB less than 14 weeks Indication: Bleeding, pain Technique: Real-time grayscale and color Doppler images of the pelvis were obtained by the department grips. Comparisons: 11/14/2019 FINDINGS: Uterus measures 9.7 x 4.8 x 5.1 cm. Within the endometrium there is a gestational sac with internal pole. No cardiac activity identified. pole measures 5 mm in length. Right ovary measures 2.5 x 1.3 x 2.0 cm. Left ovary measures 2.7 x 1.5 x 1.5 cm. Follicular change in the ovaries bilaterally. Vascular flow identified within the ovaries bilaterally. No free fluid. IMPRESSION: Gestational sac with internal pole. No heart rate is identified. Differential considerations include early IUP versus failed IUP. Recommend correlation with serial beta hCG measurements and short-term follow-up ultrasound. Electronically signed by: Luis Fernando Tipton MD (11/19/2019 10:07 PM) [id number] DICTATED AND SIGNED BY: LUIS FERNANDO TIPTON MD DATE: 11/19/192206 CC: BRENTON PARKER MD; OCTAVIO EM APRN ~ Course & Med Decision Making: Course & Med Decision Making Pertinent Labs and Imaging studies reviewed. (See chart for details) Discussed presentation,testing and tx. plan with Dr. Farley at , advised she does not have findings of ectopic and not sure who told her that at . Patient to keep follow-up at in the morning at 1030. Patient's beta-hCG tonight is 10,972-which is a drop from her earlier beta-hCG. Patient take vitamins. Patient take meds as directed. Patient warned that no intrauterine identified tonight. May be because early , ectopic, or miscarriage. With her history of previous problems must keep all follow-ups with where she plans to deliver for continuity of care. Patient to take only Tylenol for pain. Patient continue monitor for bleeding. If further problems to keep follow-up with where she plans to get her OB care and deliver. Must follow up cultures. Impression: 1. with abdomen pain ( No IUP identified by ultrasound tonight) 2. History of endometriosis 3. History of ovarian cyst 4. Beta-hCG 10,972 5. Patient's blood type is O+positive 6. Hemoglobin is well 12.5 7. Bacterial vaginosis- clue cells 8. 2 term 1 9. History of hypertension and eclampsia with first 10.Constipation 11.Exhibits possible narcotic seeking behavior 12. Threaten Miscarry- recent drop in BHCG 12,380 to 10,972 [] Dragon Disclaimer: Dragon Disclaimer: This electronic medical record was generated, in whole or in part, using a voice recognition dictation system. Departure Departure: Disposition: 01 HOME/RESIDENCE PRIOR TO ADM Condition: STABLE Referrals: OCTAVIO EM APRN (PCP) Justification of Admission: Justification of Admission: Justification of Admission Dx: N/A Dragon Disclaimer This chart was dictated in whole or in part using Voice Recognition software in a busy, high-work load, and often noisy Emergency Department environment. It may contain unintended and wholly unrecognized errors or omissions. BRENTON PARKER MD Nov 19, 2019 19:29
[2019-11-19] MEDS: IV RINGERS SOLUTION,LACTATED 1,000 ML IV ONE (19:47)
[2019-11-19 20:02] LABS: HEMATOCRIT 37.6 % (36.0-47.0); HEMOGLOBIN 12.5 g/dL (12.0-15.5); RED BLOOD COUNT 4.03 x10^6/uL (3.50-5.40); RED CELL DISTRIBUTION WIDTH 15.4 % (11.5-14.5); WHITE BLOOD COUNT 10.1 x10^3/uL (4.0-11.0)
[2019-11-19 20:11] VITALS: BP 144/96
[2019-11-19 20:12] LABS: CALCIUM 8.8 mg/dL (8.5-10.1); GFR 62.4; POTASSIUM 3.4 mmol/L (3.5-5.1)
[2019-11-19] MEDS: MORPHINE SULFATE 10 MG/ML SYRINGE. SQ ONE (20:46)
--- NOTE | 2019-11-19 22:10 | RAD ---
Exam: Ultrasound OB less than 14 weeks Indication: Bleeding, pain Technique: Real-time grayscale and color Doppler images of the pelvis were obtained by the department shoe sprayer. Comparisons: 11/14/2019 FINDINGS: Uterus measures 9.7 x 4.8 x 5.1 cm. Within the endometrium there is a gestational sac with internal pole. No cardiac activity identified. pole measures 5 mm in length. Right ovary measures 2.5 x 1.3 x 2.0 cm. Left ovary measures 2.7 x 1.5 x 1.5 cm. Follicular change in the ovaries bilaterally. Vascular flow identified within the ovaries bilaterally. No free fluid. IMPRESSION: Gestational sac with internal pole. No heart rate is identified. Differential considerations include early IUP versus failed IUP. Recommend correlation with serial beta hCG measurements and short-term follow-up ultrasound. Electronically signed by: Luis Fernando Molina MD (11/19/2019 10:07 PM) [id number]
[2019-11-21 20:07] LABS: CHLAMYDIA PROBE Negative (Negative)
--- NOTE | 2019-11-24 11:19 | NUR ---
IP: notified patient of COVID result.
== END 2019-11-19 23:58 | disposition home or self-care (01) ==
LOC: ER 19:22
DX: O20.0 Threatened abortion (principal); O23.591 Infection of other part of genital tract in pregnancy, first trimester; K59.00 Constipation, unspecified; O16.1 Unspecified maternal hypertension, first trimester; G89.29 Other chronic pain; Z90.49 Acquired absence of other specified parts of digestive tract; Z3A.01 Less than 8 weeks gestation of pregnancy; Z90.89 Acquired absence of other organs; Z88.5 Allergy status to narcotic agent; Z88.8 Allergy status to other drugs, medicaments and biological substances
CPT/HCPCS: 36415; 76801; 76817; 80048; 84702; 85027; 87491; 87591; 96360; 96372; 99284; J2270; J7120; Q0111; U0003; 99285-25

== ENCOUNTER 2019-12-31 21:13 | Emergency (ER) | payer OTHER ==
[~2019-12-31] VITALS: Ht 162.6 cm; Wt 74.5 kg
[2019-12-31 21:13] VITALS: BP 135/93
[2019-12-31 22:51] LABS: BILIRUBIN,URINE NEG (NEG); CLARITY,URINE CLEAR; COLOR,URINE YELLOW; GLUCOSE,URINE NEG (NEG)
[2019-12-31 22:52] LABS: BACTERIA,URINE 0 /HPF (0-FEW); NITRITE,URINE NEG (NEG); RBC,URINE 0 /HPF (0-2); UROBILINOGEN,URINE 0.2 mg/dL (0.2 mg/dL); WBC,URINE 0 /HPF (0-4)
--- NOTE | 2019-12-31 23:15 | RAD ---
Obstetric transvaginal ultrasound less than 14 weeks HISTORY: Pelvic pain and . Patient states 3 weeks . No quantitative hCG available time of exam. FINDINGS: Transabdominal imaging demonstrates anteverted uterus measuring 6.8 x 4.3 cm bidimensional. Images provided of the right ovary measures 3.2 x 1.9 x 2.1 cm. Transvaginal imaging demonstrates anteverted uterus measuring 7.5 x 4.1 x 5.4 cm. No intrauterine gestational sac. Endometrium thickness 0.7 cm. Subcentimeter cervical cysts. Right ovary measures 2.5 x 1.5 x 2.2 cm. Left ovary measures 3.7 x 2.2 x 1.3 cm with a 1.3 cm thick-walled hypoechoic focus without internal blood flow this is most likely a corpus luteum. There is a separate subcentimeter hypoechoic focus which may be a follicle within the periphery of the ovary. Intact bilateral ovarian blood flow. No hypervascular adnexal masses to suggest an ectopic . No pelvic fluid. IMPRESSION: No intrauterine evident. Differential diagnosis includes sonographically occult early intrauterine , sonographically occult ectopic , or sequela of spontaneous . Clinical and sonographic follow-up is advised. Electronically signed by: Adalberto Vazquez MD (12/31/2019 11:12 PM) [facility]
--- NOTE | 2019-12-31 23:23 | PHYS DOC ---
Past History Past Medical History: Anxiety, Constipation, Endometriosis, Hypertension, Ovarian Cyst, STD, Other Additional Past Medical Histor: BORDERLINE PERSONALITY DISORDER, chronic back pain, drug seeking behavior Past Surgical History: Appendectomy, Cholecystectomy, Other Additional Past Surgical Histo: NECK CYST REMOVED, KIDNEY CYST SURGERY, Smoking: Non-smoker Alcohol Use: None Drug Use: None General Adult EDM: Chief Complaint: VAGINAL BLEEDING HPI: HPI: Patient is a [age] year old [sex] who presents with [] Review of Systems: Review of Systems: Constitutional: Denies fever or chills Eyes: Denies change in visual acuity HENT: Denies nasal congestion or sore throat Respiratory: Denies cough or shortness of breath Cardiovascular: Denies chest pain or edema GI: Denies abdominal pain, nausea, vomiting, bloody stools or diarrhea : Denies dysuria Musculoskeletal: Denies back pain or joint pain Integument: Denies rash Neurologic: Denies headache, focal weakness or sensory changes Endocrine: Denies polyuria or polydipsia Lymphatic: Denies swollen glands Psychiatric: Denies depression or anxiety Heart Score: Risk Factors: Risk Factors: DM, Current or recent (<one month) smoker, HTN, HLP, family history of CAD, obesity. Risk Scores: Score 0 - 3: 2.5% MACE over next 6 weeks - Discharge Home Score 4 - 6: 20.3% MACE over next 6 weeks - Admit for Clinical Observation Score 7 - 10: 72.7% MACE over next 6 weeks - Early Invasive Strategies Allergies: Allergies: Allergies Coded Allergies Type Severity Reaction Last Updated Verified alprazolam Allergy Unknown 12/26/17 Yes oxycodone Allergy Unknown 05/07/17 Yes Physical Exam: PE: Constitutional: Well developed, well nourished, no acute distress, non-toxic appearance. [] HENT: Normocephalic, atraumatic, bilateral external ears normal, oropharynx moist, no oral exudates, nose normal. [] Eyes: PERRLA, EOMI, conjunctiva normal, no discharge. [] Neck: Normal range of motion, no tenderness, supple, no stridor. [] Cardiovascular:Heart rate regular rhythm, no murmur [] Lungs & Thorax: Bilateral breath sounds clear to auscultation [] Abdomen: Bowel sounds normal, soft, no tenderness, no masses, no pulsatile masses. [] Skin: Warm, dry, no erythema, no rash. [] Back: No tenderness, no CVA tenderness. [] Extremities: No tenderness, no cyanosis, no clubbing, ROM intact, no edema. [] Neurologic: Alert and oriented X 3, normal motor function, normal sensory function, no focal deficits noted. [] Psychologic: Affect normal, judgement normal, mood normal. [] Current Patient Data: Labs: Laboratory Tests Test 12/31/19 22:06 12/31/19 22:24 Urine Collection Type Unknown Urine Color Yellow Urine Clarity Clear Urine pH 6.0 Urine Specific [place] >=1.030 Urine Protein Neg (NEG-TRACE) Urine Glucose (UA) Neg mg/dL (NEG) Urine Ketones (Stick) Trace mg/dL (NEG) Urine Blood Neg (NEG) Urine Nitrite Neg (NEG) Urine Bilirubin Neg (NEG) Urine Urobilinogen Dipstick 0.2 mg/dL (0.2 mg/dL) Urine Leukocyte Esterase Neg (NEG) Urine RBC 0 /HPF (0-2) Urine WBC 0 /HPF (0-4) Urine Squamous Epithelial Cells None /LPF Urine Bacteria 0 /HPF (0-FEW) POC Urine HCG, Qualitative hcg positive (Negative) Vital Signs: Vital Signs Date Time Temp Pulse Resp B/P (MAP) Pulse Ox O2 Delivery O2 Flow Rate FiO2 12/31/19 21:13 97.3 90 20 135/93 (107) 100 Room Air EKG: EKG: [] Radiology/Procedures: Radiology/Procedures: PROCEDURE: OB <14 WKS W/TV Obstetric transvaginal ultrasound less than 14 weeks HISTORY: Pelvic pain and . Patient states 3 weeks . No quantitative hCG available time of exam. FINDINGS: Transabdominal imaging demonstrates anteverted uterus measuring 6.8 x 4.3 cm bidimensional. Images provided of the right ovary measures 3.2 x 1.9 x 2.1 cm. Transvaginal imaging demonstrates anteverted uterus measuring 7.5 x 4.1 x 5.4 cm. No intrauterine gestational sac. Endometrium thickness 0.7 cm. Subcentimeter cervical cysts. Right ovary measures 2.5 x 1.5 x 2.2 cm. Left ovary measures 3.7 x 2.2 x 1.3 cm with a 1.3 cm thick-walled hypoechoic focus without internal blood flow this is most likely a corpus luteum. There is a separate subcentimeter hypoechoic focus which may be a follicle within the periphery of the ovary. Intact bilateral ovarian blood flow. No hypervascular adnexal masses to suggest an ectopic . No pelvic fluid. IMPRESSION: No intrauterine evident. Differential diagnosis includes sonographically occult early intrauterine , sonographically occult ectopic , or sequela of spontaneous . Clinical and sonographic follow-up is advised. Electronically signed by: Adalberto Vazquez MD (12/31/2019 11:12 PM) [facility] [place] Med Decision Making: Course & Med Decision Making Pertinent Labs and Imaging studies reviewed. (See chart for details) [] Dragon Disclaimer: Dragon Disclaimer: This electronic medical record was generated, in whole or in part, using a voice recognition dictation system. Departure Departure: Impression: Primary Impression: Abdominal pain during Qualified Codes: O26.891 - Other specified related conditions, first trimester; R10.9 - Unspecified abdominal pain Additional Impression: Left against medical advice Disposition: 01 HOME/RESIDENCE PRIOR TO ADM Condition: STABLE Referrals: OCTAVIO EM APRN (PCP) Patient Instructions: Abdominal Pain During , [id number], Discharge Against Medical Advice IDA ONOFRE DO Dec 31, 2019 23:23
[2019-12-31] MEDS ORDERED: ACETAMINOPHEN 500 MG TABLET PO ONE (23:45)
[2020-01-01] MEDS ORDERED: ONDANSETRON ODT 4 MG TAB.RAPDIS PO ONE
[2020-01-01 01:24] LABS: BASO % 1 % (0-3); EOS % 0 % (0-3); HEMATOCRIT 29.4 % (36.0-47.0); HEMOGLOBIN 9.8 g/dL (12.0-15.5); LYMPH # 2.6 x10^3/uL (1.0-4.8); LYMPH % 27 % (24-48); MEAN CORPUSCULAR HEMOGLOBIN 32 pg (25-35); MEAN CORPUSCULAR HGB CONC 33 g/dL (31-37); MEAN CORPUSCULAR VOLUME 95 fL (79-100); MONO # 0.9 x10^3/uL (0.0-1.1); MONO % 10 % (0-9); NEUT # 6.1 x10^3uL (1.8-7.7); NEUT % 63 % (31-73); PLATELET COUNT 116 x10^3/uL (140-400); RED CELL DISTRIBUTION WIDTH 14.8 % (11.5-14.5); WHITE BLOOD COUNT 9.6 x10^3/uL (4.0-11.0)
[2020-01-01 01:41] LABS: CALCIUM 9.5 mg/dL (8.5-10.1); CREATININE 1.4 mg/dL (0.6-1.0); GFR 42.3; POTASSIUM 3.4 mmol/L (3.5-5.1)
[2020-01-01 01:47] LABS: ALBUMIN 3.9 g/dL (3.4-5.0); MAGNESIUM 2.6 mg/dL (1.8-2.4); TOTAL BILIRUBIN 0.4 mg/dL (0.2-1.0); TOTAL PROTEIN 7.7 g/dL (6.4-8.2)
[2020-01-02 21:06] LABS: CHLAMYDIA PROBE Negative (Negative)
== END 2020-01-01 00:02 | disposition left against medical advice (07) ==
LOC: ER 21:13
DX: O26.891 Other specified pregnancy related conditions, first trimester (principal); R10.30 Lower abdominal pain, unspecified; O16.1 Unspecified maternal hypertension, first trimester; G89.29 Other chronic pain; Z88.8 Allergy status to other drugs, medicaments and biological substances; Z88.5 Allergy status to narcotic agent; Z3A.01 Less than 8 weeks gestation of pregnancy
CPT/HCPCS: 36415; 76801; 76817; 80053; 81001; 81025; 83735; 84702; 85025; 87491; 87591; 99284; Q0162

== ENCOUNTER 2020-01-25 18:36 | Emergency (ER) | payer OTHER ==
[~2020-01-25] VITALS: Ht 162.6 cm; Wt 86.4 kg
--- NOTE | 2020-01-25 19:48 | PHYS DOC ---
Past History Past Medical History: Anxiety, Asthma, Bipolar, Depression, Endometriosis, Hypertension Additional Past Medical Histor: BORDERLINE PERSONALITY DISORDER, chronic back pain, drug seeking behavior (IDA MALHOTRA APRN) Past Surgical History: Appendectomy, Cholecystectomy, Other Additional Past Surgical Histo: ABD EXPLORATORY LAP (IDA MALHOTRA APRN) Smoking: Non-smoker Alcohol Use: None Drug Use: None (IDA MALHOTRA APRN) Adult General Chief Complaint Chief Complaint: ABDOMINAL PAIN IN HPI HPI Patient is a 39 year old female who presents with complaints of vaginal bleeding with left CVA tenderness that radiates down her left side to her vagina. Patient rates her pain at a 10/10 on a 1-10 pain scale. Patient states that her pain started this Sunday evening sudden onset at approximately 2000. Patient reports that she is approximately 9 weeks but does not know a due date. Patient states she is currently seen the high risk clinic. Patient states that she had a miscarriage 2 months ago. Patient states she is G3 para 1 SAB 1. Patient reports she has been having vaginal bleeding as she describes as spotting off and on since December 24. Patient describes the spotting as bright red to dark brown on the toilet paper after she urinates each time. Patient states she does not notice any bleeding when she is not u rinating. Patient worries that she may have a kidney stone as she had one 4 years ago. Patient states that she took Tylenol at approximately 1700 today stating 500 mg 2 tablets without relief and is currently asking for Percocet or Vail for pain relief. Patient reports that she would like to have Percocet or Vail and an IV form this time. Patient reports she is nauseated and wants some Zofran because she does not like the other nausea medicines. Patient states that her pain is so bad that she is now shaking and has a headache and worries that her blood pressure will get out of control if she does not get narcotic pain medicine soon. Patient denies any fever or chills, denies visual changes, denies nasal congestion cough or shortness of breath. Patient denies chest pains, vomiting, diarrhea, or constipation. Patient denies vaginal discharge or STI concerns. Patient denies pain in her joints, skin rashes, focal weaknesses or sensory changes. Patient denies any increased urination or increased thirst. Patient denies swelling of her glands, depressions, anxieties, homicidal or suicidal ideation. Patient denies being around anybody with the COVID-19 virus that she is aware of, patient does not wish to be tested for the COVID-19 virus today. (IDA MALHOTRA APRN) Review of Systems Review of Systems Constitutional: Denies fever or chills Eyes: Denies change in visual acuity, redness, or eye pain HENT: Denies nasal congestion or sore throat Respiratory: Denies cough or shortness of breath Cardiovascular: Patient denies chest pain, denies edema, denies swelling of her extremities. GI: Complains of low left-sided pelvic pains with nausea but denies vomiting, bloody stools, constipation or diarrhea [] : Denies dysuria but complains of blood in her urine, denies vaginal discharge or STI concerns. Musculoskeletal: Denies pain in her joints, reports CVA tenderness that radiates down her back to her pelvis and vagina. Integument: Denies rash or skin lesions Neurologic: Denies headache, focal weakness or sensory changes Endocrine: Denies polyuria or polydipsia Psychiatric: Patient denies anxieties, depressions, homicidal or suicidal ideations. All other systems were reviewed and found to be within normal limits, except as documented in this note. (IDA MALHOTRA APRN) Current Medications Current Medications Patient states she is in too much pain to remember all the medications she takes at home at this time. Current Medications Medications (Trade) Dose Ordered Sig/Gianluca Start Time Stop Time Status Last Admin Dose Admin Acetaminophen/ Hydrocodone Bitart (Lortab 10/325) 1 tab 1X ONCE 01/25/20 19:45 01/25/20 19:46 UNV Ondansetron HCl (Zofran Odt) 4 mg 1X ONCE 01/25/20 19:45 01/25/20 19:46 UNV (IDA MALHOTRA APRN) Allergies Allergies Allergies Coded Allergies Type Severity Reaction Last Updated Verified alprazolam Allergy Intermediate Swelling 01/25/20 Yes oxycodone Allergy Intermediate 01/25/20 Yes (IDA MALHOTRA APRN) Physical Exam Physical Exam Constitutional: Well developed, well nourished, no acute distress, non-toxic appearance. HENT: Normocephalic, atraumatic, bilateral external ears normal, oropharynx moist, no oral exudates, nose normal. Eyes: PERRLA, EOMI, conjunctiva normal, no discharge. Patient's pupils 5 mm prompt reaction to light stimuli. Neck: Normal range of motion, no tenderness, supple, no stridor. Cardiovascular:Heart rate regular rhythm, no murmur, heart sounds S1-S2 auscultation. Lungs & Thorax: Bilateral breath sounds clear to auscultation all lung zuniga. Abdomen: Bowel sounds normal all 4 quadrants to auscultation, soft, no masses, no pulsatile masses. Pain to palpation on left lower quadrant and pelvic area with no rebound tenderness, no psoas sign, no Kilgore sign, no McBurney's point tenderness. Skin: Warm, dry, no erythema, no rash. Back: CVA tenderness to left side with radiation to palpation down left side of back to lumbar region. No midline spinal tenderness, no right-sided lumbar region pain. No right-sided CVA tenderness. Extremities: No tenderness, no cyanosis, no clubbing, ROM intact, no edema. Neurologic: Alert and oriented X 3, normal motor function, normal sensory function, no focal deficits noted. Psychologic: Affect hypervigilant, judgement normal, mood normal. : Pelvic exam revealed external structures within normal limits there were no lesions no rashes no excoriations no signs of infectious process. Speculum exam was within normal limits there was no discharge, no excoriations, no lesions, no bleeding, the os was closed, there was no blood around or coming from the os. Patient had no cervical motion tenderness on bimanual exam. STI cultures were obtained and sent to lab. (IDA MALHOTRA APRN) Current Patient Data Vital Signs Vital Signs Date Time Temp Pulse Resp B/P (MAP) Pulse Ox O2 Delivery O2 Flow Rate FiO2 01/25/20 18:43 99.1 117 18 132/100 (111) 98 Room Air Lab Results Laboratory Tests Test 01/25/20 19:25 01/25/20 20:05 01/25/20 20:44 Urine Collection Type Unknown Urine Color Yellow Urine Clarity Clear Urine pH 7.0 Urine Specific Mammoth 1.015 Urine Protein Neg Urine Glucose (UA) Neg mg/dL Urine Ketones (Stick) Neg mg/dL Urine Blood Neg Urine Nitrite Neg Urine Bilirubin Neg Urine Urobilinogen Dipstick 0.2 mg/dL Urine Leukocyte Esterase Neg Urine RBC 0 /HPF Urine WBC Rare /HPF Urine Squamous Epithelial Cells Few /LPF Urine Bacteria 0 /HPF Urine Opiates Screen Neg Urine Methadone Screen Neg Urine Barbiturates Neg Urine Phencyclidine Screen Neg Urine Amphetamine/Methamphetamine Neg Urine Benzodiazepines Screen Neg Urine Cocaine Screen Neg Urine Cannabinoids Screen Neg Urine Ethyl Alcohol Neg White Blood Count 10.7 x10^3/uL Red Blood Count 3.91 x10^6/uL Hemoglobin 12.2 g/dL Hematocrit 36.7 % Mean Corpuscular Volume 94 fL Mean Corpuscular Hemoglobin 31 pg Mean Corpuscular Hemoglobin Concent 33 g/dL Red Cell Distribution Width 14.9 % Platelet Count 333 x10^3/uL Neutrophils (%) (Auto) 69 % Lymphocytes (%) (Auto) 20 % Monocytes (%) (Auto) 9 % Eosinophils (%) (Auto) 1 % Basophils (%) (Auto) 0 % Neutrophils # (Auto) 7.4 x10^3uL Lymphocytes # (Auto) 2.2 x10^3/uL Monocytes # (Auto) 1.0 x10^3/uL Eosinophils # (Auto) 0.1 x10^3/uL Basophils # (Auto) 0.0 x10^3/uL Maternal Serum HCG Beta Subunit 76372 mIU/mL Sodium Level 138 mmol/L Potassium Level 3.9 mmol/L Chloride Level 103 mmol/L Carbon Dioxide Level 25 mmol/L Anion Gap 10 Blood Urea Nitrogen 7 mg/dL Creatinine 0.7 mg/dL Estimated GFR (Cockcroft-Gault) 94.2 BUN/Creatinine Ratio 10 Glucose Level 109 mg/dL Calcium Level 8.7 mg/dL Total Bilirubin 0.2 mg/dL Aspartate Amino Transf (AST/SGOT) 10 U/L Alanine Aminotransferase (ALT/SGPT) 27 U/L Alkaline Phosphatase 93 U/L Total Protein 6.3 g/dL Albumin 3.4 g/dL Albumin/Globulin Ratio 1.2 Lipase 165 U/L Bedside Urine HCG, Qualitative hcg positive Current Medications Medications (Trade) Dose Ordered Sig/Gianluca Route PRN Reason Start Time Stop Time Status Last Admin Dose Admin Ondansetron HCl (Zofran Odt) 4 mg 1X ONCE PO 01/25/20 20:00 01/25/20 20:01 DC 01/25/20 19:59 Acetaminophen/ Hydrocodone Bitart (Lortab ) 1 tab 1X ONCE PO 01/25/20 20:00 01/25/20 20:01 DC 01/25/20 19:59 Laboratory Tests Test 01/25/20 19:25 01/25/20 20:05 01/25/20 20:44 Urine Collection Type Unknown Urine Color Yellow Urine Clarity Clear Urine pH 7.0 Urine Specific Mammoth 1.015 Urine Protein Neg Urine Glucose (UA) Neg mg/dL Urine Ketones (Stick) Neg mg/dL Urine Blood Neg Urine Nitrite Neg Urine Bilirubin Neg Urine Urobilinogen Dipstick 0.2 mg/dL Urine Leukocyte Esterase Neg Urine RBC 0 /HPF Urine WBC Rare /HPF Urine Squamous Epithelial Cells Few /LPF Urine Bacteria 0 /HPF Urine Opiates Screen Neg Urine Methadone Screen Neg Urine Barbiturates Neg Urine Phencyclidine Screen Neg Urine Amphetamine/Methamphetamine Neg Urine Benzodiazepines Screen Neg Urine Cocaine Screen Neg Urine Cannabinoids Screen Neg Urine Ethyl Alcohol Neg White Blood Count 10.7 x10^3/uL Red Blood Count 3.91 x10^6/uL Hemoglobin 12.2 g/dL Hematocrit 36.7 % Mean Corpuscular Volume 94 fL Mean Corpuscular Hemoglobin 31 pg Mean Corpuscular Hemoglobin Concent 33 g/dL Red Cell Distribution Width 14.9 % Platelet Count 333 x10^3/uL Neutrophils (%) (Auto) 69 % Lymphocytes (%) (Auto) 20 % Monocytes (%) (Auto) 9 % Eosinophils (%) (Auto) 1 % Basophils (%) (Auto) 0 % Neutrophils # (Auto) 7.4 x10^3uL Lymphocytes # (Auto) 2.2 x10^3/uL Monocytes # (Auto) 1.0 x10^3/uL Eosinophils # (Auto) 0.1 x10^3/uL Basophils # (Auto) 0.0 x10^3/uL Maternal Serum HCG Beta Subunit 16761 mIU/mL Sodium Level 138 mmol/L Potassium Level 3.9 mmol/L Chloride Level 103 mmol/L Carbon Dioxide Level 25 mmol/L Anion Gap 10 Blood Urea Nitrogen 7 mg/dL Creatinine 0.7 mg/dL Estimated GFR (Cockcroft-Gault) 94.2 BUN/Creatinine Ratio 10 Glucose Level 109 mg/dL Calcium Level 8.7 mg/dL Total Bilirubin 0.2 mg/dL Aspartate Amino Transf (AST/SGOT) 10 U/L Alanine Aminotransferase (ALT/SGPT) 27 U/L Alkaline Phosphatase 93 U/L Total Protein 6.3 g/dL Albumin 3.4 g/dL Albumin/Globulin Ratio 1.2 Lipase 165 U/L Bedside Urine HCG, Qualitative hcg positive Current Medications Medications (Trade) Dose Ordered Sig/Gianluca Route PRN Reason Start Time Stop Time Status Last Admin Dose Admin Ondansetron HCl (Zofran Odt) 4 mg 1X ONCE PO 01/25/20 20:00 01/25/20 20:01 DC 01/25/20 19:59 Acetaminophen/ Hydrocodone Bitart (Lortab ) 1 tab 1X ONCE PO 01/25/20 20:00 01/25/20 20:01 DC 01/25/20 19:59 (IDA MALHOTRA APRN) EKG EKG [] (IDA MALHOTRA APRN) Radiology/Procedures Radiology/Procedures REASON: ABDOMINAL CRAMPING WITH VAGINAL BLEEDING PROCEDURE: OB <14 WKS EXAM: Obstetrics sonogram. HISTORY: Cramping and bleeding. TECHNIQUE: Transabdominal and transvaginal sonographic imaging of the pelvis was performed. COMPARISON: 12/31/2019. FINDINGS: The uterus measures 10.0 x 6.2 x 3.9 cm. There is a single intrauterine gestational sac with pole and yolk sac. The crown-rump length is 1.3 cm, corresponding with a gestational age of 7 weeks and 5 days. The heart rate is normal at 160 bpm. The gestational sac is normal in configuration and location. No subchronic hematoma is seen. The ovaries are normal in size and demonstrate normal blood flow. There is a small left corpus luteum cyst measuring 1.8 cm. IMPRESSION: 1. Single intrauterine fetus with a normal heart rate and gestational age of 7 weeks and 5 days. 2. 1.8 cm left corpus luteum cyst. 3. No acute sonographic finding. Electronically signed by: Geneva Link MD (01/25/2020 9:53 PM) [facility] DICTATED AND SIGNED BY: GENEVA LINK MD DATE: 01/25/20 4056 CC: IDA MALHOTRA APRN; BRENTON PARKER MD; OCTAVIO EM APRN ~ (IDA MALHOTRA APRN) Heart Score Risk Factors: Risk Factors: DM, Current or recent (<one month) smoker, HTN, HLP, family history of CAD, obesity. Risk Scores: Risk Factors: DM, Current or recent (<one month) smoker, HTN, HLP, family history of CAD, obesity. (IDA MALHOTRA APRN) Course & Med Decision Making Course & Med Decision Making Pertinent Labs and Imaging studies reviewed. (See chart for details) 39-year-old patient resting emergency department today complaining of left sided CVA tenderness that radiates down her back to her pelvis area into her vagina that started suddenly at approximately 2000 this Sunday. Patient states she has had intermittent vaginal bleeding since February 23. Patient states that she is approximately 9 weeks and a patient of the high risk clinic. Patient states that she miscarried 2 months ago but was not sure exactly how far along she was. Patient had not had a menstrual cycle for approximately a year so she cannot give me a last menstrual period that correlates with her 9-week . Patient states that she is requiring either Percocet or Vail for pain immediately because she fears that her blood pressure will get too high and she will develop a headache. Patient stated look at my hands they are shaking I am hurting so bad, patient then raised her hands of and shook them in a tremor type motion to show me that she was hurting badly. Patient states that she might have a kidney stone that she had one 4 years ago and she knows that requires morphine and would like to have some mo rphine as well. Patient describes her occasional off-and-on vaginal bleeding as spotting only when she urinates and notices bright red to dark brown blood on the paper. A work-up was done in the emergency department to include labs however I did not order a type and Rh because the patient was O+ on November 14, 2019 here at the hospital when she came in for a miscarriage. A urinalysis was performed, the urine was positive today, her urine was not infected, there was no blood in the urine. The wet prep was negative for clue cells, yeast, blood, trichomonas. The urine GC and chlamydia are pending. A sonogram showed a normal intrauterine without complications. Reexamination of the patient found patient asleep in bed, woke patient up she stated her pain was down to a 5/10 on a 1-10 pain scale. Explained to patient that there was no blood noted on her pelvic exam, that her sonogram showed a normal without complications, patient states that she would like to have some Vail to go home with, explained to patient that she needs to follow-up with the high risk clinic tomorrow, patient gave verbal understanding of follow-up instructions, home instructions, prescription instructions, return to ER concerns, patient had no further questions or concerns, discharged home without incident. (IDA MALHOTRA APRN) Dragon Disclaimer Dragon Disclaimer This electronic medical record was generated, in whole or in part, using a voice recognition dictation system. (IDA MALHOTRA APRN) Departure Departure: Impression: Primary Impression: High-risk in woman 35 years of age or older Additional Impression: Feared condition not demonstrated Disposition: 01 DC HOME SELF CARE/HOMELESS Condition: GOOD Referrals: OCTAVIO EM APRN (PCP) Additional Instructions: Follow-up with the high risk clinic tomorrow. Your ER work-up today did not show any blood in your urine, there was no blood on your pelvic exam, your sonogram showed healthy intrauterine . Take medications as prescribed. Return to the emergency department for worsening symptoms or concerns. Scripts Hydrocodone Bit/Acetaminophen (NORCO 5-325 TABLET) 1 Each Tablet 1-2 TAB PO Q4-6HRS for pain, #6 TAB 0 Refills Prov: IDA MALHOTRA APRN 01/25/20 Attending Co-Sign Attending Co-Sign The patient was seen and interviewed as well as examined at the bedside. The chart was reviewed. The case was discussed. Agree with the plan of care. (BRENTON PARKER MD) Problem Qualifiers IDA MALHOTRA APRN Jan 25, 2020 19:48 BRENTON PARKER MD Jan 26, 2020 06:27
[2020-01-25 19:54] LABS: BARBITURATES NEG (NEG); BENZODIAZEPINES NEG (NEG); CANNABINOIDS NEG (NEG); COCAINE NEG (NEG); METHADONE NEG (NEG); OPIATES NEG (NEG); PHENCYCLIDINE NEG (NEG)
[2020-01-25 19:59] LABS: BILIRUBIN,URINE NEG (NEG); CLARITY,URINE CLEAR; COLOR,URINE YELLOW; GLUCOSE,URINE NEG (NEG); NITRITE,URINE NEG (NEG); UROBILINOGEN,URINE 0.2 mg/dL (0.2 mg/dL)
[2020-01-25 20:00] LABS: BACTERIA,URINE 0 /HPF (0-FEW); RBC,URINE 0 /HPF (0-2); SQUAMOUS EPITHELIAL CELL,UR FEW /LPF; WBC,URINE RARE /HPF (0-4)
[2020-01-25] MEDS ORDERED: ONDANSETRON ODT 4 MG TAB.RAPDIS PO ONE (20:00)
[2020-01-25] MEDS ORDERED: HYDROcodone/APAP 10/325 1 TAB TABLET PO ONE (20:00)
[2020-01-25 20:01] LABS: AMPHETAMINE/METHAMPHETAMINE NEG (NEG)
[2020-01-25 20:37] LABS: BASO % 0 % (0-3); EOS # 0.1 x10^3/uL (0.0-0.7); EOS % 1 % (0-3); HEMATOCRIT 36.7 % (36.0-47.0); HEMOGLOBIN 12.2 g/dL (12.0-15.5); LYMPH # 2.2 x10^3/uL (1.0-4.8); LYMPH % 20 % (24-48); MEAN CORPUSCULAR HEMOGLOBIN 31 pg (25-35); MEAN CORPUSCULAR HGB CONC 33 g/dL (31-37); MEAN CORPUSCULAR VOLUME 94 fL (79-100); MONO % 9 % (0-9); NEUT # 7.4 x10^3uL (1.8-7.7); NEUT % 69 % (31-73); PLATELET COUNT 333 x10^3/uL (140-400); RED BLOOD COUNT 3.91 x10^6/uL (3.50-5.40); RED CELL DISTRIBUTION WIDTH 14.9 % (11.5-14.5); WHITE BLOOD COUNT 10.7 x10^3/uL (4.0-11.0)
[2020-01-25 20:40] LABS: CALCIUM 8.7 mg/dL (8.5-10.1); CREATININE 0.7 mg/dL (0.6-1.0); GFR 94.2; POTASSIUM 3.9 mmol/L (3.5-5.1)
[2020-01-25 20:45] LABS: ALBUMIN 3.4 g/dL (3.4-5.0); ALBUMIN/GLOBULIN RATIO 1.2 (1.0-1.7); TOTAL BILIRUBIN 0.2 mg/dL (0.2-1.0); TOTAL PROTEIN 6.3 g/dL (6.4-8.2)
--- NOTE | 2020-01-25 21:56 | RAD ---
EXAM: Obstetrics sonogram. HISTORY: Cramping and bleeding. TECHNIQUE: Transabdominal and transvaginal sonographic imaging of the pelvis was performed. COMPARISON: 12/31/2019. FINDINGS: The uterus measures 10.0 x 6.2 x 3.9 cm. There is a single intrauterine gestational sac with pole and yolk sac. The crown-rump length is 1.3 cm, corresponding with a gestational age of 7 weeks and 5 days. The heart rate is normal at 160 bpm. The gestational sac is normal in configuration and location. No subchronic hematoma is seen. The ovaries are normal in size and demonstrate normal blood flow. There is a small left corpus luteum cyst measuring 1.8 cm. IMPRESSION: 1. Single intrauterine fetus with a normal heart rate and gestational age of 7 weeks and 5 days. 2. 1.8 cm left corpus luteum cyst. 3. No acute sonographic finding. Electronically signed by: Geneva Juárez MD (01/25/2020 9:53 PM) [facility]
[2020-01-25] MEDS ORDERED: HYDR-3165 PO (22:23)
[2020-01-25 22:30] VITALS: BP 133/81
== END 2020-01-25 22:36 | disposition home or self-care (01) ==
LOC: ER 18:36
DX: O09.91 Supervision of high risk pregnancy, unspecified, first trimester (principal); Z71.1 Person with feared health complaint in whom no diagnosis is made; I63.9 Cerebral infarction, unspecified; O99.511 Diseases of the respiratory system complicating pregnancy, first trimester; J45.909 Unspecified asthma, uncomplicated; O16.1 Unspecified maternal hypertension, first trimester; Z3A.09 9 weeks gestation of pregnancy; Z88.5 Allergy status to narcotic agent; Z88.8 Allergy status to other drugs, medicaments and biological substances
CPT/HCPCS: 36415; 76801; 80053; 80307; 81001; 81025; 83690; 84702; 85025; 87040; 87491; 87591; 99284; Q0111; Q0162

== ENCOUNTER 2020-01-28 16:31 | Emergency (ER) | payer OTHER ==
[~2020-01-28] VITALS: Ht 162.6 cm; Wt 84.9 kg
--- NOTE | 2020-01-28 17:01 | PHYS DOC ---
Past History Past Medical History: Anxiety, Asthma, Bipolar, Depression, Endometriosis, Hypertension Additional Past Medical Histor: BORDERLINE PERSONALITY DISORDER, chronic back pain, drug seeking behavior Past Surgical History: Appendectomy, Cholecystectomy, Other Additional Past Surgical Histo: ABD EXPLORATORY LAP Smoking: Non-smoker Alcohol Use: None Drug Use: None General Adult EDM: Chief Complaint: MULTIPLE COMPLAINTS HPI: HPI: Patient is a 39 year old female who presents with low back pain and nausea. Patient is at 8 weeks. Patient reports three days ago that she began having low back pain rated at 8/10 with radiation to LUQ and to the groin. This AM she began having nausea and vomiting. Patient also reports urinary frequency, reddish-brown urine, and dysuria. Patient describes some spotting off and on since early December. Patient describes the spotting as yellow. Patient reports constipation with last bowel movement this AM and described as runny and denies blood in stool or dark stool. Patient states that tylenol and norco was ineffective. Patient has had similar symptoms with a miscarriage in October. She was recently seen in ED on 01/25/20. Patient states she has had the following associated symptoms shortness of breath, vomiting, slurring of words, numbness and tingling in legs bilaterally, and stool and urine incontinence. Patient denies any sick or COVID contacts. [facility] review noted patient recently presented to ED 2 days ago for same. Full laboratory examination performed and found unremarkable including Chlamydia/Gonorrhea screen and wet mount. OB US also performed with good heart tones and IUP. Per [facility] review documentation with prior history of "drug seeking behavior" and statements made by patient requesting narcotic pain medications. Patient also reportedly follow with "high risk" OB at . Review of Systems: Review of Systems: Constitutional: Admits fever, chills, and night sweats Eyes: Admits blurry vision. Denies redness or eye pain HENT: Admits nasal congestion or sore throat Respiratory: Admits shortness of breath, dyspnea. Denies cough, wheezing Cardiovascular: Admits palpitations. Denies chest pain GI: Admits abdominal pain in LUQ, constipation, nausea, or vomiting : Admits frequency dysuria, hematuria, and incontinence Musculoskeletal: Admits low back pain. Denies joint pain Integument: Denies rash or skin lesions Neurologic: Admits headaches. Denies focal weakness or sensory changes Complete systems were reviewed and found to be within normal limits, except as documented in this note. Allergies: Allergies: Allergies Coded Allergies Type Severity Reaction Last Updated Verified alprazolam Allergy Intermediate Swelling 01/25/20 Yes oxycodone Allergy Intermediate 01/25/20 Yes Physical Exam: PE: Constitutional: Well developed, well nourished, severe acute distress, non-toxic appearance HENT: Normocephalic, atraumatic Eyes: PERRL, EOMI, conjunctiva normal, no discharge Neck: Normal range of motion, no tenderness, supple Lungs & Thorax: No respiratory distress, equal chest rise and fall Abdomen: Soft, tenderness in LUQ Skin: Warm, dry, no erythema, no rash Back: No tenderness, bilateral CVA tenderness Extremities: No tenderness, ROM intact, no edema Neurologic: Alert and oriented X 3, normal motor function, normal sensory function, no focal deficits noted Psychologic: Affect normal, judgment normal Radiology/Procedures: Radiology/Procedures: [] Course & Med Decision Making: Course & Med Decision Making Patient is a 39yo female who presents with low back pain and nausea. Patient experienced nausea and vomiting this AM. Patient was seen 01/24. She states that norco and tylenol have been ineffective in controlling pain. Ultrasound of kidneys was ordered to rule out kidney stone. Patient stable for discharge with outpatient follow-up with PCP. Discussed findings and plan with patient, who acknowledges understanding and agreement. Tommy Disclaimer: Tommy Disclaimer: This electronic medical record was generated, in whole or in part, using a voice recognition dictation system. Departure Departure: Impression: Primary Impression: Suspected 2019 novel coronavirus infection Additional Impressions: Acute exacerbation of chronic low back pain Qualified Codes: Z3A.08 - 8 weeks gestation of Nausea Disposition: DC HOME SELF CARE/HOMELESS Condition: STABLE Referrals: OCTAVIO EM APRN (PCP) Patient Instructions: ABCs of , Chronic Back Pain, Nausea, Adult, [id number] Additional Instructions: Please follow closely with your pain management doctor and your [facility] at for further management. You have been tested for or diagnosed with COVID-19. It is an infection caused by a new type of coronavirus. COVID-19 will cause cold-like or mild flu symptoms in most. It can cause more severe symptoms like problems breathing in some. There is no treatment for COVID-19. The body will clear the infection over time. Self-care will help to ease discomfort. Steps to Take: Self-Care Rest as needed. Healthy habits may help you feel better. Steps include: Choose healthy foods including fruits and vegetables. Drink water throughout the day. Get plenty of sleep each night. If you smoke, try to quit. It may ease breathing. Avoid alcohol. Keep Others Healthy The virus can spread to others. Droplets are released every time you sneeze or cough. The droplets can get into the mouth, nose, or eyes of people near you and lead to infection. To lower the chances of spreading COVID-19 to others: Stay at home until your doctor has said it is safe to leave. If you tested positive this will mean staying isolated until both of the following are true: At least 7 days have passed since the start of illness. You are free of fever for at least 72 hours without the use of medicine. During this time: - Avoid public areas, events, or transportation. Do not return to work or school until your doctor has said it is safe to do so. - Call ahead if you need to go to a medical center. Let them know you may have COVID-19. It will help them guide you where to go. They may also ask you to wear a facemask when you come to the office. - If you call for emergency medical services, let them know you may have COVID- 19. While at home: - Try to avoid close contact with others. Stay about 6 feet away. - If possible, spend most of your time in a separate room from others. - Use a face mask if you will be in close contact with others such as sharing a room or vehicle. - Have someone wipe down common surfaces in the home. Use household casing flusher every day on areas like doorknobs, counters, or sinks. - Cough or sneeze into a tissue. Throw the tissue away right after use. If a tissue is not available, cough or sneeze into your elbow. - Wash your hands often. Wash them after sneezing or coughing. Use soap and water and wash for at least 20 seconds. Alcohol based hand body cleaner can be used if soap and water is not available. - Do not prepare food for others. Avoid sharing personal items like forks, spoons, or toothbrushes. - Avoid close contact with pets while you are sick. There is no evidence of the virus passing to pets. This is a safety step until more is known about this virus. Isolation can be frustrating. Social interaction can help. Keep in touch with friends and family through phone and tech options. You can still interact with others in your home, just keep a safe distance of about 6 feet. Follow-up: Your doctors office will check in with you to see if there are any changes in your health. You may be asked to keep track of symptoms to share with them. They will also let you know when you are clear to be in public again. Problems to Look Out For: Contact your doctor if your recovery is not going as you expect. Get emergency care if you have problems such as: - Trouble breathing - Nonstop chest pain or pressure - Changes in awareness, confusion, or problems waking - Lips or face have bluish color - Worsening of symptoms If you think you have an emergency, call for emergency medical services right away. [facility] Promethazine Hcl (PROMETHAZINE HCL) 25 Mg Supp.rect 1 SUPP RC TID PRN PRN for NAUSEA, #10 SUPP 0 Refills Prov: IDA ONOFRE DO 01/28/20 Ondansetron (ONDANSETRON ODT) 4 Mg Tab.rapdis 1 TAB PO PRN Q6-8HRS PRN for NAUSEA, #16 TAB Prov: IDA ONOFRE DO 01/28/20 IDA ONOFRE DO Jan 28, 2020 17:00
[2020-01-28] MEDS ORDERED: ONDANSETRON ODT 4 MG TAB.RAPDIS PO ONE (17:15)
[2020-01-28] MEDS ORDERED: ACETAMINOPHEN 500 MG TABLET PO ONE (17:15)
[2020-01-28] MEDS ORDERED: PROM25SU33 RC (17:39)
[2020-01-28] MEDS ORDERED: ONDA4TAB12 PO (17:39)
[2020-01-28] MEDS ORDERED: DEXAMETHASONE 4 MG TABLET PO ONE (17:45)
--- NOTE | 2020-01-28 17:45 | RAD ---
Examination: Ultrasound kidneys HISTORY: History of flank pain COMPARISON: None available. FINDINGS: The right kidney measures 12.0 x 5.7 x 4.9 cm. The left kidney measures 12.6 x 4.3 x 4.9 cm. The visualized aorta, IVC within normal limits of dimension. The urinary bladder is mildly distended. No evidence of hydronephrosis. Partially visualized intrauterine live identified. IMPRESSION: 1. No evidence of hydronephrosis. Electronically signed by: Terrance Ly MD (01/28/2020 5:42 PM) [id number]
[2020-01-28 17:57] VITALS: BP 113/81
== END 2020-01-28 18:03 | disposition home or self-care (01) ==
LOC: ER 16:31
DX: O26.891 Other specified pregnancy related conditions, first trimester (principal); G89.29 Other chronic pain; M54.5 Low back pain; O21.9 Vomiting of pregnancy, unspecified; R10.12 Left upper quadrant pain; O99.511 Diseases of the respiratory system complicating pregnancy, first trimester; J45.909 Unspecified asthma, uncomplicated; O16.1 Unspecified maternal hypertension, first trimester; Z20.828 Contact with and (suspected) exposure to other viral communicable diseases; Z3A.08 8 weeks gestation of pregnancy; Z90.49 Acquired absence of other specified parts of digestive tract; Z90.89 Acquired absence of other organs; Z88.8 Allergy status to other drugs, medicaments and biological substances; Z88.5 Allergy status to narcotic agent
CPT/HCPCS: 76770; 99284; C9803; J8540; Q0162; U0003